=== PATIENT | male | born 1960 | race Caucasian/White ===

== ENCOUNTER 2020-08-20 10:41 | Inpatient (IN) | payer OTHER ==
[~2020-08-20 10:41] MED LIST: Albuterol Sulfate HFA (OR ONLY) ONE; Succinylcholine Chloride 20 MG/ML 10 ml SYRINGE FS ONE; Vecuronium 10 MG VIAL ONE
[2020-08-20 11:21] LABS: INR-International Normal Ratio 2.8; PTT 48.3 sec (22.9-36.1); Prothrombin Time 29.9 sec (12.0-14.7)
[2020-08-20 11:38] LABS: #Eosinphils 0.1 thou/uL (0.0-0.7); #Lymphocytes 2.2 thou/uL (1.20-3.40); #Monocytes 1.8 thou/uL (0.11-0.59); #Neutrophils 14.8 thou/uL (1.40-6.50); %Basophils 0.1 % (0.0-1.0); %Eosinophils 0.5 % (0.0-10.0); %Lymphocytes 11.7 % (21.0-51.0); %Monocytes 9.3 % (0.0-10.0); %Neutrophils 78.3 % (42.0-75.0); Crenated RBC MODERATE= 6-15 cells (100X) (None Seen); Hemoglobin 8.5 g/dL (14.0-18.0); MDiff Complete? YES; Macrocytosis SLIGHT = 6-15 cells (100X) (0-5/hpf); Mean Corpuscular HGB CONC 32.7 g/dL (32.0-36.0); Mean Corpuscular Hemoglobin 35.1 pg (27.0-31.0); Mean Platelet Volume 9.1 fL (7.4-10.4); Platelet Count 70 thou/uL (130-400); Platelet Morphology Comment Appears Decreased; RBC Distribution Width 16.2 % (11.5-14.5); Red Blood Cell (RBC) Count 2.43 mill/uL (4.70-6.10); White Blood Cell (WBC) Count 18.9 thou/uL (4.8-10.8)
[2020-08-20 11:42] LABS: ALT (SGPT) 19 U/L (8-55); AST (SGOT) 30 U/L (5-34); Albumin 1.9 g/dL (3.5-5.0); Alkaline Phosphatase 93 U/L (40-110); Anion Gap 26 mmol/L (10-20); Bilirubin, Total 13.1 mg/dL (0.2-1.2); Calc. Creatinine Clearance 0 mL/min (70-130); Calcium 7.6 mg/dL (7.8-10.44); Carbon Dioxide 15 mmol/L (22-29); Chloride 95 mmol/L (98-107); Estimated GFR-MDRD 6; Globulin 2.2 g/dL (2.4-3.5); Glucose 133 mg/dL (70-105); Potassium 5.5 mmol/L (3.5-5.1); Protein, Total 4.1 g/dL (6.0-8.3); Sodium 130 mmol/L (136-145)
[2020-08-20] MEDS ORDERED: Octreotide Acetate 50 MCG/ML AMP ONE (11:44)
[2020-08-20] MEDS ORDERED: Pantoprazole 40 MG VIAL ONE (11:44)
[2020-08-20] MEDS ORDERED: Octreotide Acetate 1,250 MCG in Sodium Chloride 0.9% 250 ML 250 ML IVPB SCH (11:45)
[2020-08-20] MEDS ORDERED: Pantoprazole 80 MG, Admixture Fee 1 EACH in Sodium Chloride 0.9% 100 ML IVPB SCH (11:45)
[2020-08-20 12:04] LABS: BUN (Urea Nitrogen) 164 mg/dL (8.4-25.7)
[2020-08-20] MEDS ORDERED: EPINEPHrine 1 MG/10 ML Abboject SYRINGE ONE (12:27)
[2020-08-20] MEDS ORDERED: Ondansetron PF 4 MG/2 ML Vial IVP PRN (12:41)
[2020-08-20] MEDS ORDERED: Ondansetron ODT 4 MG TAB PO PRN (12:41)
[2020-08-20] MEDS ORDERED: Lactated Ringer's 1,000 ML IV SCH (12:45)
--- NOTE | 2020-08-20 12:47 | PDOC.FPRHP ---
- History of Present Illness Chief Complaint: rectal bleed History of Present Illness: Mr. Paredes is a 60 year old gentleman with a history of COPD and alcoholic cirrhosis who presented via EMS following a large rectal bleed of bright red blood. Patient explains he has seen drops of bright red blood from his rectum for the past 3-4 days. Today he recalls being at home and feeling unwell, explaining he was having trouble breathing. He called his sister who then called EMS. EMS gave him albuterol in route to the hospital. He also reports diarrhea of one month duration. Patient denies fever, CP, nausea, vomiting, or coughing up blood. He was diagnosed with alcoholic cirrhosis approximately 1 year ago and was last hospitalized for ascites in April of this year in [place]. He has never seen GI outpatient. He moved here to [place] in May. Patient reports no alcoholic intake for 1 year but says he drank "a lot" before. Mr. Paredes reports he is supposed to be on inhalers for his COPD but he does not take them. ED Course: Hypotension, hypothermic, and tachycardic upon arrival. L humeral I/O placed and fluids initiated. Right femoral central line placed. Octreotide and Protonix drip. 4u pRBC, 1u plasma. 2L NS. - Allergies/Adverse Reactions Allergies Allergy/AdvReac Type Severity Reaction Status Date / Time No Known Allergies Allergy Unverified 08/20/20 11:44 - History PMHx: COPD, alcoholic cirrhosis PSHx: unspecified lung surgery FHx: Non-contributory Social: 1/2 PPD since teenager, previous heavy drinker - sober for 1 year, no marijuana or drug use. IV drug use when 21. Recently moved to [facility] from [place]. His sister lives here. - Review of Systems General: denies: fever/chills Eyes: denies: vision changes ENT: denies: nasal congestion Respiratory: reports: cough. denies: shortness of breath Cardiovascular: denies: chest pain, edema Gastrointestinal: reports: diarrhea, GI bleeding. denies: nausea, vomiting, abdominal pain Skin: reports: jaundice Musculoskeletal: denies: arthritis/arthralgias Neurological: reports: weakness - Vital signs BP: 88/52, MAP: 64 HR: 100 RR: 21 Tmax: 94.9 Pox: 100% on 2L Wt: 57kg - Physical Exam Constitutional: NAD, awake, alert and oriented -Constitutional: cachetic HEENT: normocephalic and atraumatic, grossly normal vision, grossly normal hearing -HEENT: scleral icteric Chest: no lesions Heart: pulses present -Heart: difficult to assess due to lung sounds -Lungs: diffuse wheezing and coarse breath sounds Abdomen: soft, non-tender -Abdomen: distended, +fluid wave, hepatomegaly Musculoskeletal: ROM grossly normal Neurological: no focal deficit, CN II-XII intact -Skin: jaundice Psychiatric: normal mood and affect, good judgment and insight, intact recent and remote memory FMR H&P: Results - Labs Result Diagrams: 08/20/20 11:03 08/20/20 11:03 Lab results: WBC 18.9 thou/uL (4.8-10.8) H 08/20/20 11:03 Hgb 8.5 g/dL (14.0-18.0) L 08/20/20 11:03 Hct 26.1 % (42.0-52.0) L 08/20/20 11:03 MCV 107.0 fL (78.0-98.0) H 08/20/20 11:03 Plt Count 70 thou/uL (130-400) L 08/20/20 11:03 Neutrophils % 78.3 % (42.0-75.0) H 08/20/20 11:03 Sodium 130 mmol/L (136-145) L 08/20/20 11:03 Potassium 5.5 mmol/L (3.5-5.1) H 08/20/20 11:03 Chloride 95 mmol/L (98-107) L 08/20/20 11:03 Carbon Dioxide 15 mmol/L (22-29) L 08/20/20 11:03 BUN 164 mg/dL (8.4-25.7) H 08/20/20 11:03 Creatinine 8.79 mg/dL (0.7-1.3) H 08/20/20 11:03 Glucose 133 mg/dL (70-105) H 08/20/20 11:03 Calcium 7.6 mg/dL (7.8-10.44) L 08/20/20 11:03 Total Bilirubin 13.1 mg/dL (0.2-1.2) H 08/20/20 11:03 AST 30 U/L (5-34) 08/20/20 11:03 ALT 19 U/L (8-55) 08/20/20 11:03 Alkaline Phosphatase 93 U/L (40-110) 08/20/20 11:03 Serum Total Protein 4.1 g/dL (6.0-8.3) L 08/20/20 11:03 Albumin 1.9 g/dL (3.5-5.0) L 08/20/20 11:03 - EKG Interpretation EKnd degree AVB FMR H&P: A/P - Problem List (1) Hemorrhagic shock Current Visit: Yes Status: Acute Code(s): R57.8 - OTHER SHOCK (2) Acute renal failure Current Visit: Yes Status: Acute (3) Alcoholic cirrhosis Current Visit: Yes Status: Acute Code(s): K70.30 - ALCOHOLIC CIRRHOSIS OF LIVER WITHOUT ASCITES (4) COPD (chronic obstructive pulmonary disease) Current Visit: Yes Status: Acute (5) GI bleed Current Visit: Yes Status: Acute Code(s): K92.2 - GASTROINTESTINAL HEMORRHAGE, UNSPECIFIED (6) Hyperkalemia Current Visit: Yes Status: Acute Code(s): E87.5 - HYPERKALEMIA (7) Hyponatremia Current Visit: Yes Status: Acute Code(s): E87.1 - HYPO-OSMOLALITY AND HYPONATREMIA - Plan 60 yo M with a history of COPD and alcoholic cirrhosis presenting in hemorrhagic shock following rectal bleed Hemorrhagic Shock Hypotensive, hypothermic, and tachycardic following large rectal bleed. Received 2L NS, 4u pRBC, 1u plasma in ED. -Admit to ICU -150mL/hr LR -Hgb 8.5 on admission -MAP 65, no pressors at this time -repeat CBC, BMP pending -ABG pending Acute Renal Failure No history of kidney disease -Cr 8.79, K 5.5 -rolle in place -Consult: Nephro Bhaskar) Alcoholic Cirrhosis Diagnosed 1 year ago. Last hospitalized for ascites in April. Has never seen GI doctor. Heavy drinker prior to quitting 1 year ago. -jaundice, icteric sclera, ascites, hepatomegaly on exam -takes spironolactone and furosemide -AFP pending -MELD score: 40, 71% 3 mo mortality -Child-Javed score: 13, 1-3 year mortality -AST 30, ALT 19, albumin 1.9, Bili 13.1 -Consult: GI (Amanda) GI bleed History of bright red rectal bleeding of 3 days. EMS found patient in large pool of bright red blood and clots. -Consult: GI (Amanda) -protonix and octreatide drip -NPO in preparation for a possible scope -rocephin for SBP PPx COPD -Diffuse wheezing and coarse breath sounds -100% on 2L -duonebs Hyperkalemia -K 5.5 -repeat pending Hyponatremia -Na 130 -likely due to hepatorenal syndrome Tobacco use -1/2 PPD since teenager -Nicotine patch -Cessation education DVT: SCDs Diet: NPO PCP: None IVF: 150mL/hr LR Dispo: admit to ICU. eLOS >48 hours. FMR H&P: Upper Level - Pertinent history Pt is a 60 yo M with pmh of COPD and Cirrhosis. He started having diarrhea one week ago and then developed bright red bleeding per rectum 3-4 days ago. Started feeling bad today and felt like he couldnt breathe. Sister called EMS. EMS found him in a pool of blood. He received albuterol on the way to the hospital. He was hypotensive, hypothermic, and tachycardia. He states his last appointment with a doctor was last April. He recently moved here from [place]. He states he was hospitalized in April for ascites due to his cirrhosis. He has been taking medications from that hospital stay. - Pertinent findings Vitals: T: 94.2, HR: 100, RR: 21, O2: 100 on 2L, BP: 88/52 Physical Exam: General: Alert and oriented HEENT: Sclera Icteric Cardiac: Exam limited due to respiratory compromise Respiratory: Diffuse, coarse continuous wheezing Abdominal: Soft, Non-tender, Distended abdomen, unable to hear bowel sounds Neuro: A&Ox3, CN II-XII grossly intact, no focal deficits Extremities: Trace edema present, pulses 2+ throughout 1. Hemorrhagic Shock 2/2 Rectal Bleeding -1 week of bleeding -In ED: Protonix gtt, Octreotide gtt, 2L of Fluid, and Right femoral central line -Getting ABG, Staring Fluids 150 LR -Ordered: 4 U packed RBCs, 1 U of plasma -Consulted GI (08/18), Dr. Patel, Appreciate recs 2. Alcoholic Cirrhosis -Home Meds: Spironolactone, Furosemide -Last hospitalized in April for Ascites -AST: 30, ALT: 19 on admission -He has not seen a GI doctor -MELD: 40, Morality 70% in 3 months -Jacinto-Javed: 13, Class C, life expectancy 1-3 years 3. COPD -Has inhaler at home, but does not use them -Starting duonebs 4. ARF on CKD -Cre: 8.79 -Consulted Nephrology -Rolle placed -Will monitor I&Os Code Status: Full PCP: None Lines: R Femoral, IO in L Humerus Fluids: LR @ 150 Diet: NPO GI PPx: Famotidine gtt DVT PPx: SCDs Dispo: Admit to ICU, GI consulted, NPO for scope. - Plan Date/Time: 08/20/20 4027 I, [], have evaluated this patient and agree with findings/plan as outlined by undergraduate intern resident. Pertinent changes/additions are listed here. Addendum - Attending - Attending Attestation Date/Time: 08/20/20 0842 I personally evaluated the patient and discussed the management with Dr. Bliss/Payam Jauregui. I agree with the History, Examination, Assessment and Plan documented above with any addition or exceptions noted below. Patient here with 3-4 days of hematochezia and BRBPR in the setting of cirrhosis history. Patient apparently found down earlier today and sent to ED. He reports to me that he has been feeling increasingly weak and fatigued for about 1 week. Reports otherwise feeling in baseline health status during this period. He does indicate on questioning that he has been urinating less over the last few days. Upon arrival to ED, he was apparently hypotensive, hypothermic, and altered. He received serial transfusion and bare hugger therapy. His H/H was 8.5/26. Exam shows vital signs currently of HR100 BP80s/60s. Sat 100%. He is AXO, answers questions appropriately. Scleral icterus and jaundice diffusely. Distended abdomen. Minimal peripheral edema. Labs show anemia, leukocytosis, thrombocytopenia, coagulopathy, uremia, and ARF with metabolic acidosis. He has minimal UOP in the urine bag. Patient will be admitted for the following: suspected Class 4 hemorrhagic shock in setting of suspected lower GI bleed in setting of cirrhosis. Suspect decompensated cirrhosis. Acute renal failure, likely 2/2 shock above but also could have component of hepatorenal syndrome. Possible Hepatic and Uremic encephalopathy. Cirrhotic coagulopathy. He has been fluid resuscitated, vitals currently more stable. Trend H/H, transfuse PRBC and plasma as needed. Monitor close UOP. Nephro and GI consults. Patient will be admitted to CCU for close monitoring. Continue Protonix and Octreotide for now as cannot completely exclude brisk UGIB at this time though less likely. Rocephin for SBP ppx due to hypotension in setting of cirrhosis with ascites. Blood cultures. Further mgmt pending clinical course.
[2020-08-20] MEDS ORDERED: Norepinephrine 8 MG/0.9% NS 250 ML ONE (13:14)
[2020-08-20] MEDS ORDERED: Electrolyte Replacement Protoc 1 EACH EACH IVPB ONE (13:58)
[2020-08-20] MEDS ORDERED: Dextrose 50% Abboject 50 ML SYRINGE IVP PRN (14:15)
[2020-08-20] MEDS ORDERED: Dextrose 5% in Water 1,000 ML IV PRN (14:15)
[2020-08-20] MEDS ORDERED: Midazolam HCl 2 mg/2 ml Vial ONE (14:26)
[2020-08-20] MEDS ORDERED: Ketamine 50 MG/ML (10ML VIAL) ONE (14:26)
[2020-08-20] MEDS ORDERED: Albuterol Sulfate HFA (OR ONLY) ONE (14:43)
[2020-08-20 14:44] LABS: ALT (SGPT) 17 U/L (8-55); AST (SGOT) 29 U/L (5-34); Albumin 1.7 g/dL (3.5-5.0); Alkaline Phosphatase 82 U/L (40-110); Anion Gap 20 mmol/L (10-20); Bilirubin, Total 11.1 mg/dL (0.2-1.2); Calc. Creatinine Clearance 0 mL/min (70-130); Calcium 6.5 mg/dL (7.8-10.44); Carbon Dioxide 15 mmol/L (22-29); Chloride 102 mmol/L (98-107); Estimated GFR-MDRD 7; Glucose 111 mg/dL (70-105); Potassium 5.4 mmol/L (3.5-5.1); Protein, Total 3.7 g/dL (6.0-8.3); Sodium 132 mmol/L (136-145)
[2020-08-20 14:57] LABS: HBSAg Index 0.21 S/CO (0-0.99); Hep B Surf Ag Non-Reactive S/CO (NonReactive)
[2020-08-20 14:57] LABS: BUN (Urea Nitrogen) 148 mg/dL (8.4-25.7)
[2020-08-20 14:58] LABS: Hep A IgM AB Non-Reactive (NonReactive); Hep A IgM S/CO 0.33 S/CO (0-0.79)
[2020-08-20 15:00] LABS: HBCM Index 0.07 S/CO (0-0.79); Hep C IgG Ab Reflex HepC Qnt (NonReactive); Hep C Index 13.26 S/CO (0-0.79); Hepatitis B Core IgM Abs Non-Reactive (NonReactive)
[2020-08-20] MEDS ORDERED: cefTRIAXone\\ROCEPHIN 1 GM in Sodium Chloride 0.9% 100 ML IVPB SCH (15:00)
[2020-08-20 16:14] LABS: Actual Bicarbonate (HCO3a) 13.7 mEq/L (22-28); Base Excess (BEa) -12.6 mEq/L (-2.0 to +3.0); CO2 Tension 32.7 mmHg (35.0-45.0); Calcium, Ionized (arterial) 0.98 mmol/L (1.12-1.30); Carboxyhemoglobin (COHb) 0.9 gm% (0.0-3.0); Hemoglobin (Hb) 12.3 g/dL (14.0-18.0); O2 Tension (PaO2), arterial 137.8 mmHg (80.0-100.0); Potassium - ABG Lab 5.17 mmol/L (3.70-5.30)
[2020-08-20 16:17] LABS: Puncture Site L.R.; pH, Arterial 7.24 (7.35-7.45)
[2020-08-20 16:18] LABS: ALV-art Gradient 106.525 mmHg (0-20)
[2020-08-20 16:23] LABS: #Eosinphils 0.1 thou/uL (0.0-0.7); #Lymphocytes 2.1 thou/uL (1.20-3.40); #Monocytes 1.7 thou/uL (0.11-0.59); #Neutrophils 15.4 thou/uL (1.40-6.50); %Basophils 0.1 % (0.0-1.0); %Eosinophils 0.4 % (0.0-10.0); %Lymphocytes 10.8 % (21.0-51.0); %Monocytes 8.7 % (0.0-10.0); %Neutrophils 79.9 % (42.0-75.0); Mean Corpuscular HGB CONC 33.9 g/dL (32.0-36.0); Mean Corpuscular Hemoglobin 34.7 pg (27.0-31.0); Mean Platelet Volume 9.1 fL (7.4-10.4); Platelet Count 59 thou/uL (130-400); RBC Distribution Width 15.3 % (11.5-14.5); Red Blood Cell (RBC) Count 3.45 mill/uL (4.70-6.10); White Blood Cell (WBC) Count 19.2 thou/uL (4.8-10.8)
[2020-08-20] MEDS ORDERED: Phytonadione 10 MG in Sodium Chloride 0.9% 50 ML IVPB SCH (16:30)
--- NOTE | 2020-08-20 16:48 | RAD ---
PORTABLE SUPINE CHEST: Date: 08/20/2020 INDICATION: Post intubation. FINDINGS/IMPRESSION: ET tube has been placed and tip is above adria. Lungs appear aerated and clear. There are numerous l eft-sided rib fractures, age indeterminate. No pneumothorax identified. POS: AGW
[2020-08-20] MEDS ORDERED: Lorazepam 2 MG/ML VIAL SLOW IVP PRN (17:30)
[2020-08-20] MEDS ORDERED: Propofol BOLUS 1,000 MG/100 ML VIAL IV PRN (17:30)
[2020-08-20] MEDS ORDERED: fentaNYL Citrate/PF 2,000 MCG in Sodium Chloride 0.9% 60 ML IV SCH (17:30)
[2020-08-20] MEDS ORDERED: Propofol 1,000 MG/100 ML VIAL IV PRN (17:30)
[2020-08-20] MEDS ORDERED: Fentanyl BOLUS 250 ML IVPB PRN (17:30)
[2020-08-20] MEDS ORDERED: Morphine 2 MG/ML VIAL SLOW IVP PRN (17:30)
[2020-08-20] MEDS ORDERED: DISCONTINUE PREVIOUS NARCOTIC PAIN MEDICATIONS AND BENZODIAZEPINES FS SCH (17:30)
[2020-08-20] MEDS: cefTRIAXone\\ROCEPHIN 2 GM in Sodium Chloride 0.9% 100 ML IVPB SCH (17:32)
[2020-08-20] MEDS: Sodium Bicarbonate 140 MEQ in Dextrose 5% in Water 1,000 ML IV SCH (17:32)
--- NOTE | 2020-08-20 17:32 | CON ---
DATE OF CONSULTATION: 08/20/2020 REASON FOR CONSULTATION: Hematochezia, cirrhosis. CONSULTING PROVIDER: Santino Meyer MD HISTORY OF PRESENT ILLNESS: The patient is a 60-year-old male with past medical history of COPD and cirrhosis complicated by lower extremity edema and ascites, presenting with complaints of hematochezia. He states that he was in his usual state of health until approximately 1 week ago when he began having acute onset of hematochezia characterized as bright red blood per rectum to the point where the patient was having approximately 5 to 7 bloody bowel movements per day. During the same time, he also endorsed the appearance of dark black colored liquid stools also occurring at the same time of his hematochezia. With the onset of this hematochezia, he had associated increased shortness of breath in addition to increased wheezing, but otherwise denied any nausea, vomiting, fevers, chills, abdominal pain, dysphagia, odynophagia, worsening abdominal distention, lower extremity edema, or constipation. However, with his worsening shortness of breath and with the failure to stop having these bloody bowel movements, it prompted him to seek healthcare assistance at the [facility]. With the increased bloody bowel movements, ultimately, EMS was called to his home and had found the patient lying down in a "large pool of blood" at which point, the patient was immediately transported to [facility] for further evaluation. While in the ER, he was noted to have continued hematochezia in addition to tachycardia and hypotension with blood pressures in the range of 80 systolic. Subsequently, the patient was resuscitated with 2 units of normal saline in addition to 2 units of PRBCs (second one still processing at this time) in addition to placing the patient on pantoprazole and octreotide drip. At the time of this interview, the patient was still having difficulty maintaining adequate blood pressure/perfusion and was subsequently being placed on Levophed pressor support. At the current time, the patient states that he is just feeling ill, but otherwise is doing okay. REVIEW OF SYSTEMS: A 10-category review of systems was obtained with all responses negative except for the pertinent positives as listed in HPI. PAST MEDICAL HISTORY: As per HPI. PAST SURGICAL HISTORY: The patient had a lung surgery approximately 1 to 2 years ago with a "scrape to my lungs." No other surgical procedures. FAMILY HISTORY: Denies any GI malignancies. SOCIAL HISTORY: The patient continues to smoke tobacco, but denies recent alcohol use (last use of alcohol was approximately 1 year ago). Denies any illicit drug use. OUTPATIENT MEDICATIONS: 1. Furosemide. 2. Spironolactone. ALLERGIES: NO KNOWN DRUG ALLERGIES. PHYSICAL EXAMINATION: VITAL SIGNS: Temperature not recorded in the chart just yet, pulse 104, blood pressure 64/42, respiratory rate 22, saturating 93% on 2 L nasal cannula. GENERAL: The patient was lying in bed, in no acute distress, alert and oriented x4, although elements of history taking were noted by some confusion. HEENT: Normocephalic, atraumatic. NECK: Supple. No JVD noted. Positive scleral icterus. CARDIOVASCULAR: Tachycardic rate but regular rhythm. No discernible murmurs, gallops, or rubs. RESPIRATORY: Clear to auscultation bilaterally with no discernible wheezes or rales. ABDOMEN: Hypoactive bowel sounds. Soft, nontender to palpation, however, moderate abdominal distention that was not tense to palpation with an umbilical hernia present. EXTREMITIES: No cyanosis, clubbing, or edema. LABORATORY DATA: CBC with a white blood cell count of 18.9, hemoglobin 8.5, hematocrit 26.1, platelets 70. INR 2.8. Chemistry with a sodium of 130, potassium 5.5, chloride 95, CO2 of 15, BUN 164, creatinine 8.79, glucose 133, AST 30, ALT 19, alkaline phosphatase 93, total bilirubin 13.1, calculated MELD-Na score of 41. IMAGING DATA: No current GI imaging is available for review. ASSESSMENT AND PLAN: The patient is a 60-year-old male with past medical history of chronic obstructive pulmonary disease and cirrhosis, complicated by lower extremity edema and ascites, presenting with anemia secondary to hemorrhage and hematochezia. Anemia/hematochezia. The patient is presenting with the acute onset of hematochezia characterized as bright red blood per rectum in addition to melenic type stools, having approximately 5 to 7 of these bloody bowel movements every day for the last week. On admission, the patient was noted to be tachycardic and hypotensive with derangements in his renal function concerning for hemorrhagic shock. At the current time, based on his history of cirrhosis, the differential could include peptic ulcer disease, esophageal varix bleeding, arteriovenous malformation, Dieulafoy lesion, hemosuccus pancreaticus and/or gastrointestinal neoplasm. With the denominational of hypotension, tachycardia, and history of cirrhosis, this could represent a brisk upper gastrointestinal bleed resulting in gross blood/hematochezia, so an EGD is warranted at this time. However, if the patient does not have any findings on the EGD, would then consider rapid prep for colonoscopy for further evaluation. RECOMMENDATIONS: 1. Would continue to trend his H and H and transfuse as necessary to maintain an H and H of 06/02. 2. Continue to monitor clinically for signs of active GI bleeding. 3. Agree with placing the patient on pressor support at this time given his significant hypotension. Would continue further resuscitative efforts including blood product and IV fluids. 4. Agree with administering FFP in an attempt to correct the patient's coagulopathy. 5. Agree with placing the patient on octreotide and pantoprazole drip. 6. We will continue n.p.o. status for now in anticipation of upper endoscopy later today. 7. We would plan for upper endoscopy evaluation of the upper GI tract and possible bleeding source. If the upper endoscopy is negative for overt signs of bleeding, would then have the patient admitted to the ICU with rapid prep sequence for colonoscopy later today given his significant bleeding. We will continue to follow. Please call with any questions. Job ID: [id number]
[2020-08-20 17:34] LABS: SARS-CoV-2 MS2 Positive; SARS-CoV-2 N Gene Negative; SARS-CoV-2 S Gene Negative; SARS-CoV-2 by NAA Not Detected (NotDetected); SARS-CoV-2 orf1ab Negative
--- NOTE | 2020-08-20 17:54 | CON ---
DATE OF CONSULTATION: REASON FOR CONSULTATION: Hyperkalemia and metabolic acidosis. HISTORY OF PRESENT ILLNESS: This is a 60-year-old gentleman who presented to the hospital and has been intubated with hematochezia and cirrhosis. The patient's creatinine was 8.7 on admission. No prior baseline is available. The patient can give no further history as he is intubated. REVIEW OF SYSTEMS: Unobtainable. PAST MEDICAL HISTORY: Only available for lung surgery, cirrhosis, and major alcohol use. SOCIAL HISTORY: tobacco and alcohol. OUTPATIENT MEDICATIONS: Reviewed. ALLERGIES: REVIEWED. FAMILY HISTORY: Negative for end-stage renal disease. PHYSICAL EXAMINATION: GENERAL: The patient is resting, intubated. VITAL SIGNS: Afebrile, pulse 91, breathing at 16, blood pressure was 90/58. HEENT: Head normocephalic and atraumatic. Eyes intact, no ulcers. Nose intact, no ulcers. Ears intact, no ulcers. NECK: Supple. No JVD. CHEST: Symmetrical and clear. CARDIOVASCULAR: Shows S1 and S2, no rub, no murmur. GASTROINTESTINAL: Abdomen is distended. EXTREMITIES: Show no edema or ulcers. SKIN: Shows no rash or petechiae. MUSCULOSKELETAL: Shows no joint swelling or stiffness. GENITOURINARY: Shows no Hare or CVA tenderness. NEUROLOGIC: The patient is resting. LABORATORY DATA: Shows potassium 5.4, creatinine 8.7, BUN 164. ASSESSMENT AND PLAN: Acute kidney injury with chronic kidney disease due to decreased effective arterial blood volume with hyperkalemia and metabolic acidosis. The patient is not a candidate for dialysis as his blood pressure is significantly low. I would recommend getting continuous veno-venous hemodialysis as the patient needs to be transferred to an outside facility. Overall prognosis is poor that is imminent. The patient more than likely is too unstable for transfer. No family member is available. Job ID: [id number]
[2020-08-20 20:04] LABS: Anion Gap 24 mmol/L (10-20); Calc. Creatinine Clearance 8 mL/min (70-130); Calcium 7.1 mg/dL (7.8-10.44); Carbon Dioxide 12 mmol/L (22-29); Chloride 103 mmol/L (98-107); Estimated GFR-MDRD 7; Glucose 110 mg/dL (70-105); Potassium 5.9 mmol/L (3.5-5.1); Sodium 133 mmol/L (136-145)
[2020-08-20 20:14] LABS: BUN (Urea Nitrogen) 152 mg/dL (8.4-25.7)
--- NOTE | 2020-08-20 20:18 | OP ---
DATE OF PROCEDURE: 08/20/2020 INDICATIONS FOR PROCEDURE: Hematochezia, history of cirrhosis. PROCEDURES PERFORMED: Esophagogastroduodenoscopy with control of hemorrhage. DESCRIPTION OF PROCEDURE: After the risks and benefits of the procedure were explained to the patient including risks of bleeding, infection, perforation, reactions to anesthesia, aspiration, and/or pain, informed consent was obtained. The patient was then taken to the endoscopy suite, where general anesthesia was administered followed by endotracheal tube intubation. Once the patient was adequately sedated and intubated, he was maneuvered into the left lateral decubitus position, followed by introduction of the standard gastroscope with intubation of the esophagus, stomach, and proximal small intestines with the findings listed below. The patient tolerated the procedure well with no immediate perioperative complications. Upon conclusion of the procedure, all equipment was removed from the patient and he was transferred to the ICU in satisfactory condition. FINDINGS: Esophagus: Normal-appearing mucosa was seen in the proximal, mid, and distal esophagus. There was no evidence of erosions, ulcerations, mass lesions, esophageal varices, or active/recent bleeding. Stomach: Upon entry into the stomach, a [id number] amount of retained dark black blood was seen throughout the entire stomach limiting the visualization of the gastric mucosa somewhat; however, with aggressive irrigation and suctioning, adequate visualization was achieved. Upon examination of the gastric mucosa, diffuse mucosal erythema was seen throughout the entire stomach in a mosaic-type pattern that exhibited increased friability and mild oozing of blood with the passage of the gastroscope itself. Along the greater curvature, where the body and the antral junction existed, a small adherent clot measuring 2 to 3 mm was seen with a possible underlying ulceration, given that this is a high-risk stigmata for recent bleeding. This was intervened upon with bipolar cauterization with good hemostasis achieved. Otherwise, there were no other areas of active or recent bleeding. There was no evidence of erosions or mass lesions. No gastric varices were seen on gastric retroflexion. Duodenum: Increased mucosal erythema was seen in the duodenal bulb as well as increased edema extending into the duodenal sweep. There were approximately 3 ulcerations measuring 2 to 5 mm in size. They were shallow and clean based without any high-risk stigmata of active or recent bleeding. These were not intervened upon, given their characteristics on endoscopy. Again, darker colored blood was seen extending through the duodenal sweep and into the second, third, and fourth portions of the duodenum. Upon withdrawal of the scope, multiple areas of mild oozing of blood indicative of friability of the mucosa were seen with one area in particular that did not stop with active visualization. This area was then subsequently intervened upon with bipolar cauterization with good hemostasis achieved. IMPRESSION: 1. [id number] portal hypertensive gastropathy with increased friability and oozing of blood, but no evidence of active bleeding. 2. A 2 to 3 mm ulcer seen along the greater curvature with adherent clot concerning for recent GI bleeding, now status post bipolar cauterization with good hemostasis achieved. 3. No evidence of esophageal or gastric varices. 4. Increased mucosal erythema and edema seen in the duodenal sweep and bulb along with 3 clean based ulcerations measuring 2 to 5 mm in size consistent with peptic ulcer disease. RECOMMENDATIONS: 1. Would continue to trend his H and H and transfuse as necessary to maintain an H and H of 7/21. 2. Continue to monitor clinically for signs of active GI bleeding. 3. Would attempt to reverse the patient's coagulopathy with blood product and/or vitamin K, given the increased friability seen in the upper GI tract. 4. Given the increased probability of an upper GI bleed, colonoscopy is not indicated at this time unless the patient continues to drop his H and H or continues to have significant bloody bowel movements. 5. Would continue the patient on a PPI drip in addition to ceftriaxone as part of treatment of the portal hypertensive gastropathy/peptic ulcer disease and infection prophylaxis respectively. 6. Given the lack of evidence of esophageal or gastric varices, the octreotide drip can be discontinued. 7. Would continue the patient on n.p.o. status and intubated until tomorrow in case further drop or hypotensive episodes are noted. We will continue to follow. Please call with any questions. Job ID: [id number]
--- NOTE | 2020-08-20 21:12 | CON ---
DATE OF CONSULTATION: 08/20/2020 35 minutes of critical care time. REASON FOR CONSULTATION: Ventilator management. HISTORY OF PRESENT ILLNESS: A 60-year-old with COPD and alcoholic varices who presented with bright red blood per rectum. He was taken to endoscopy by Dr. Patel, found to have portal gastropathy, but no visible bleeding. I am not sure whether or not, the patient had colonic visualization. The patient was left intubated after the procedure for the purpose of possible taking back tomorrow for second look if he has more bleeding tonight. Because he was intubated, I did not get to talk to the patient ahead at a time. Per the history and physical on the chart, he has had bleeding for 3 to 4 days. He has had diarrhea for about a month. He has not had any alcohol intake in the last year. PAST MEDICAL HISTORY: 1. COPD. 2. Cirrhosis. PAST SURGICAL HISTORY: Some type of lung surgery in the past, looks like he has also had some type of lower abdominal surgery. SOCIAL HISTORY: Half pack per day tobacco consumption or illicit drug use. Previously heavy drinker. Just moved to this area from [place]. ALLERGIES: NONE. MEDICATIONS: Prior to admission, not known. REVIEW OF SYSTEMS: Cannot be obtained as he is on mechanical ventilation. PHYSICAL EXAMINATION: VITAL SIGNS: Heart rate 90; O2 saturation 100%; respiratory rate 22; blood pressure 112/63, on Levophed. HEENT: Unremarkable. NECK: No JVD. LUNGS: Diminished breath sounds in the bases. CARDIOVASCULAR: S1 and S2. Regular. ABDOMEN: Protuberant with ascites. EXTREMITIES: Severe muscle wasting. LABORATORY DATA: White blood cell count 18.9, hematocrit 26.1, and platelet count 70. INR 2.8. Sodium 132, potassium 5.4, chloride 102, CO2 of 15, BUN 148, creatinine 7.8, glucose 111. Hepatitis serology showed positive hepatitis C antibody. A COVID test is pending. I do not see that a chest x-ray was done. ASSESSMENT: 1. Decompensated cirrhosis with ascites and gastrointestinal bleeding. 2. Coagulopathy secondary to cirrhosis. 3. Severe metabolic acidosis. 4. Acute renal failure. 5. Possible hepatorenal syndrome. PLAN: 1. Leave intubated overnight. 2. Adjust ventilator for degree of metabolic acidosis. Start bicarbonate drip. Stop lactated Ringer. 3. Give vitamin K. 4. May need more FFP in the morning. 5. We would consider large volume paracentesis as soon as practical. 6. Nephrology and GI consultation. Job ID: [id number]
[2020-08-20] MEDS: Albumin 25% 25 GM/100 ML BOT IVPB SCH (21:48)
[2020-08-20] MEDS: Nicotine 14 MG PATCH TD SCH (21:48)
[2020-08-21] MEDS: Albumin 25% 25 GM/100 ML BOT IVPB SCH ×4 (00:38→17:51)
[2020-08-21] MEDS: Norepinephrine 8 MG/0.9% NS 250 ML IVPB SCH ×3 (00:38→22:12)
[2020-08-21] MEDS: HumaLOG 300 UNITS/3 ML VIAL SC PRN ×2 (00:48→11:46)
[2020-08-21 04:41] LABS: INR-International Normal Ratio 2.4; Prothrombin Time 26.6 sec (12.0-14.7)
[2020-08-21 05:04] LABS: ALT (SGPT) 16 U/L (8-55); AST (SGOT) 22 U/L (5-34); Albumin 2.9 g/dL (3.5-5.0); Alkaline Phosphatase 74 U/L (40-110); Anion Gap 21 mmol/L (10-20); Calc. Creatinine Clearance 8 mL/min (70-130); Calcium 7.2 mg/dL (7.8-10.44); Carbon Dioxide 16 mmol/L (22-29); Chloride 100 mmol/L (98-107); Estimated GFR-MDRD 7; Globulin 1.7 g/dL (2.4-3.5); Glucose 177 mg/dL (70-105); Potassium 4.7 mmol/L (3.5-5.1); Protein, Total 4.6 g/dL (6.0-8.3); Sodium 132 mmol/L (136-145)
[2020-08-21 05:15] LABS: BUN (Urea Nitrogen) 155 mg/dL (8.4-25.7)
[2020-08-21 05:24] LABS: Band 12 % (5-11); Burr Cells SLIGHT = 2-5 cells (100X) (0-1/hpf); Hemoglobin 10.6 g/dL (14.0-18.0); Lymphocytes 12 % (21-51); MDiff Complete? YES; Mean Corpuscular HGB CONC 34.9 g/dL (32.0-36.0); Mean Corpuscular Hemoglobin 35.3 pg (27.0-31.0); Mean Platelet Volume 6.9 fL (7.4-10.4); Monocytes 9 % (0-10); Myelocyte 1 % (0-0); Neutrophil 66 % (42-75); Platelet Count 48 thou/uL (130-400); Platelet Morphology Comment Appears Decreased; RBC Distribution Width 15.5 % (11.5-14.5); Red Blood Cell (RBC) Count 3.01 mill/uL (4.70-6.10); White Blood Cell (WBC) Count 14.5 thou/uL (4.8-10.8)
[2020-08-21] MEDS: Sodium Bicarbonate 140 MEQ in Dextrose 5% in Water 1,000 ML IV SCH ×3 (05:33→22:12)
--- NOTE | 2020-08-21 06:01 | PDOC.FM ---
- Subjective Subjective: Pt reports no pain this morning. He had one black bowel movement yesterday evening. - Objective MAR Reviewed: Yes Vital Signs & Weight: Vital Signs (12 hours) Temp Pulse Resp BP Pulse Ox 08/21/20 04:00 97.9 F 22 H 08/21/20 02:45 86 96/51 L 08/21/20 02:00 22 H 08/21/20 00:14 80 08/21/20 00:00 97.8 F 22 H 08/20/20 22:00 82 22 H 08/20/20 20:00 97.6 F 22 H 100 08/20/20 18:11 82 114/68 08/20/20 18:00 22 H Weight Weight 60.2 kg Most Recent Monitor Data Heart Rate from ECG 85 NIBP 95/51 NIBP BP-Mean 65 Respiration from ECG 22 SpO2 100 I&O: 08/19/20 08/20/20 08/21/20 06:59 06:59 06:59 Intake Total 335 Output Total 79 Balance 256 Result Diagrams: 08/21/20 04:10 08/21/20 04:10 Radiology Reviewed by me: Yes (Cardiac silhouette on right side. ET tube in place.) Phys Exam - Physical Examination Constitutional: NAD HEENT: moist MMs Sclera icteric Neck: supple Respiratory: wheezing present Diffuse wheezing present Cardiovascular: RRR, no significant murmur Distended, tympanic abdomen, no bowel sounds heard Musculoskeletal: no edema, pulses present Neurological: non-focal Lymphatic: no nodes Skin: no rash, normal turgor Dx/Plan (1) Hemorrhagic shock Code(s): R57.8 - OTHER SHOCK Status: Acute (2) GI bleed Code(s): K92.2 - GASTROINTESTINAL HEMORRHAGE, UNSPECIFIED Status: Acute (3) Thrombocytopenia Code(s): D69.6 - THROMBOCYTOPENIA, UNSPECIFIED Status: Acute (4) Acute renal failure Status: Acute (5) Alcoholic cirrhosis Code(s): K70.30 - ALCOHOLIC CIRRHOSIS OF LIVER WITHOUT ASCITES Status: Acute (6) COPD (chronic obstructive pulmonary disease) Status: Acute - Plan Plan: Pt is a 60 yo M with pmh of cirrhosis 2/2 alcohol use, COPD, and tobacco abuse who presented for hemorrhagic shock 2/2 GI bleed. 1. Hemorrhagic Shock 2/2 Rectal Bleeding -1 week of bleeding -In ED: Protonix gtt, Octreotide gtt, 2L of Fluid, and Right femoral central line -Getting ABG, Staring Fluids 150 LR -Given 3 U packed RBCs, Vit K -Octreotide stopped, Protonix continued -Ordered FFP -Consulted GI (08/18), Dr. Patel, Appreciate recs. * Found Portal gastropathy and ulcers, which was cauterized 2. Alcoholic Cirrhosis -Home Meds: Spironolactone, Furosemide -Last hospitalized in April for Ascites -AST: 30, ALT: 19 on admission -He has not seen a GI doctor -MELD: 40, Morality 70% in 3 months -Jacinto-Javed: 13, Class C, life expectancy 1-3 years 3. COPD -Has inhaler at home, but does not use them -Starting duonebs 4. ARF on CKD -Cre: 8.06 -Consulted Nephrology, appreciate recs. -Hare placed -Will monitor I&Os -On bicarb drip -Needs veno venous dialysis, but unstable for transfer. 5. Thrombocytopenia Plt: 48 - FFP ordered 6. Tobacco Abuse -Nicoderm patch given Code Status: Full PCP: None Lines: R Femoral, IO in L Humerus Fluids: Sodium Bicarb @ 100 Diet: NPO GI PPx: Famotidine 40 mg BID DVT PPx: SCDs Vent Settings: Dispo: Pt could use FFP today. Will continue protonix. Paracentesis if stable later today. Addendum - Attending - Attending Attestation Date/Time: 08/21/20 [id number] I personally evaluated the patient and discussed the management with Dr. Jauregui. I agree with the History, Examination, Assessment and Plan documented above with any addition or exceptions noted below.
[2020-08-21 06:53] LABS: Actual Bicarbonate (HCO3a) 15.9 mEq/L (22-28); Base Excess (BEa) -6.8 mEq/L (-2.0 to +3.0); Calcium, Ionized (arterial) 0.92 mmol/L (1.12-1.30); Carboxyhemoglobin (COHb) 0.3 gm% (0.0-3.0); Hemoglobin (Hb) 10.5 g/dL (14.0-18.0); O2 Tension (PaO2), arterial 72.2 mmHg (80.0-100.0); Potassium - ABG Lab 4.41 mmol/L (3.70-5.30); pH, Arterial 7.44 (7.35-7.45)
[2020-08-21 07:01] LABS: CO2 Tension 23.9 mmHg (35.0-45.0)
[2020-08-21 07:02] LABS: ALV-art Gradient 183.125 mmHg (0-20); Puncture Site LB
[2020-08-21] MEDS ORDERED: Octreotide Acetate 1,250 MCG in Sodium Chloride 0.9% 250 ML 250 ML IVPB SCH (07:15)
[2020-08-21] MEDS: Pantoprazole 40 MG VIAL IVP SCH ×2 (08:29→21:14)
[2020-08-21] MEDS ORDERED: DC Sedation Protocol FS ONE (08:39)
--- NOTE | 2020-08-21 08:46 | RAD ---
EXAM: CHEST ONE VIEW HISTORY: Pneumonia. Follow-up evaluation COMPARISON: 08/20/2020 FINDINGS: Endotracheal tube remains in place and unchanged in position. There are findings suggestive of dextro cardia. There is a curvilinear parenchymal density at the right lung base which could be related to atelectasis or focal area of pneumonitis. Multiple left-sided rib fractures are again seen. Exact age s are difficult to definitely determine but may be more remote in origin. There is no pneumothorax or pleural effusion seen on the left. There is gaseous distention of the colon. Carotid artery calcif ications are seen overlying the neck bilaterally. IMPRESSION: 1. Patchy and curvilinear parenchymal density right lung base which could be related to volume loss o r pneumonitis. Continued follow-up is recommended. 2. Findings suggesting dextrocardia. 3. Endotracheal tube remain in place. 4. Multiple posterior left-sided rib fractures. Exact ages of these fractures is indeterminate but ma y be more remote in origin.
--- NOTE | 2020-08-21 09:15 | PRG ---
DATE OF SERVICE: 08/21/2020 Thirty five minutes critical care time. SUBJECTIVE: The patient remains intubated, on mechanical ventilation. He will wake up. Follow commands without difficulty. OBJECTIVE: VITAL SIGNS: His temperature is 98.9, pulse 88, blood pressure 109/59, O2 sat 100%. 24-hour intake was 902, output 884. HEENT: Remarkable for icteric sclerae. NECK: No JVD. LUNGS: Clear anteriorly. CARDIOVASCULAR: S1, S2 regular with heart sounds focused on the right side. ABDOMEN: Tense with ascites. EXTREMITIES: Edematous. LABORATORY DATA: COVID test was negative. White blood cell count 14.5, hematocrit 30, platelet count 48. INR is 2.4. pH 7.44, pCO2 of 23, pO2 is 72, on SIMV rate 22, tidal volume 500, PEEP 5, pressure support 10, FiO2 40%. Sodium 132, potassium 4.7, chloride 100, CO2 of 16, BUN 115, creatinine 8.1, glucose 177. DIAGNOSTIC DATA: Chest x-ray shows dextrocardia. ASSESSMENT: 1. Acute respiratory failure, requiring mechanical ventilation. 2. Cirrhosis of the liver. 3. Gastrointestinal bleed. 4. Acute renal failure. 5. Hepatorenal syndrome. PLAN: The patient will be extubated. He has been made DNR. Given his fluid overloaded state, I will cut back on his IV fluid rate significantly. Unfortunately without dialysis, he will probably succumb soon. A therapeutic paracentesis might help. I will defer this to GI and Family Medicine. Job ID: [id number]
--- NOTE | 2020-08-21 11:42 | PRG ---
DATE OF SERVICE: SUBJECTIVE: A 60-year-old gentleman being seen for acute kidney injury. The patient has a unilateral kidney. The patient is extubated and modality done. PHYSICAL EXAMINATION: General: The patient is resting. Vital Signs: Afebrile, pulse 91, breathing 16, blood pressure 104/60. HEENT: Head normocephalic and atraumatic. Eyes intact, no ulcers. Nose intact, no ulcers. Ears intact, no ulcers. Neck: Supple. No JVD. Chest: Symmetrical and clear. Cardiovascular: Shows S1 and S2, no rub, no murmur. Gastrointestinal: Abdomen is distended. Extremities: Show no edema or ulcers. Skin: Shows no rash or petechiae. Musculoskeletal: Shows no joint swelling or stiffness. Genitourinary: Shows no Hare or CVA tenderness. Neurologic: Motor intact. Cranial nerves intact. LABORATORY DATA: Labs show hemoglobin 10.6. Potassium is 4.7, bicarb 16, creatinine 8.0. ASSESSMENT AND PLAN: 1. Acute kidney injury with chronic kidney disease stage 5. We will plan dialysis. 2. Metabolic acidosis. Continue bicarbonate replacement. 3. Anemia, stable. 4. Medication based on GFR appropriate. Job ID: [id number]
--- NOTE | 2020-08-21 14:15 | PDOC.PALCO ---
Palliative Care Consult - Consult Details Requesting Physician: Dr aJuregui Reason for Consult: goals of care, assistance with communication prognosis/disease - Pertinent HPI 60 year old male who arrived to [facility] via EMS with rectal bleeding, hypotension, and rectal bleeding. Subsequent intubation and admission to CCU. Received PRBC, Plasma, albumin and pressure support. Subsequent extubation at time of assessment. Patient reports his last consumption of alcohol was 10/2019. He denies any children or spouse and states he is close to his sister. States he was at [facility] in [place] for several months earlier this year. - Pertinent PMH Congestive heart failure, COPD, Cirrhosis of the liver - Social History Smoking Status: Current every day smoker Smoking: greater than 1 pack/day Alcohol Use: other (Last drink 10/2019) Drug Use History: none Living Situation: independent - Medications MAR Reviewed: Yes - Allergies Allergies/Adverse Reactions: Allergies Allergy/AdvReac Type Severity Reaction Status Date / Time No Known Allergies Allergy Verified 08/20/20 14:38 - Subjective Awake, denies any general complaints. - ROS Constitutional: alert, weakness ENT: other (Negative fo rdifficulity swallowing, throat irritation) Respiratory: other (non productive cough) Cardiology: other (Negative for chest pain, palpitations) Gastrointestinal: other (Negative for nausea, vomiting, diarrhea) Neurological: other (Negative for confusion, numbness) - Objective Vital Signs: Vital Signs - Most Recent Temp Pulse Resp BP Pulse Ox 97.9 F 95 17 116/68 99 08/21/20 12:00 08/21/20 11:52 08/21/20 11:52 08/21/20 11:32 08/21/20 11:52 Palliative Performance Scale: 60 - Physical Exam Constitutional: ill appearing HEENT: moist MMs, scleral icterus Deviation from normal: Weak wet cough, coarse lung sounds bilaterally, expira toyr wheeze Cardiovascular: RRR Gastrointestinal: soft Deviation from normal: Distended Genitourinary: rolle catheter Musculoskeletal: no cyanosis, no clubbing Deviation from normal: Icteric Psychiatric: A&O x 3 - Problem List (1) Palliative care encounter Code(s): Z51.5 - ENCOUNTER FOR PALLIATIVE CARE Current Visit: Yes Status: Acute (2) Acute renal failure Current Visit: Yes Status: Acute (3) Alcoholic cirrhosis Code(s): K70.30 - ALCOHOLIC CIRRHOSIS OF LIVER WITHOUT ASCITES Current Visit: Yes Status: Acute (4) COPD (chronic obstructive pulmonary disease) Current Visit: Yes Status: Acute (5) GI bleed Code(s): K92.2 - GASTROINTESTINAL HEMORRHAGE, UNSPECIFIED Current Visit: Yes Status: Acute (6) Hemorrhagic shock Code(s): R57.8 - OTHER SHOCK Current Visit: Yes Status: Acute (7) Hyperkalemia Code(s): E87.5 - HYPERKALEMIA Current Visit: Yes Status: Acute (8) Hyponatremia Code(s): E87.1 - HYPO-OSMOLALITY AND HYPONATREMIA Current Visit: Yes Status: Acute (9) Thrombocytopenia Code(s): D69.6 - THROMBOCYTOPENIA, UNSPECIFIED Current Visit: Yes Status: Acute - Plan/Recommendations Plan: Introduced palliative care to patient. Appears to have poor health literacy. Attempted to gain insight into patient understanding of severity of liver disease and impact on disease trajectory. MELD 46 Patient extubated today, Palliative care will follow up with further conversation in relation to liver disease paired with co morbid conditions and Goal of Care. Most important to him is "getting healthy" and being with family, he states has one sister. [50] minutes spent on this encounter with >50% of the time in counseling and coordination of care. Thank you for this very appropriate consult.
--- NOTE | 2020-08-21 14:35 | PDOC.FMACP ---
Advance Care Planning - Problem (1) Palliative care encounter Status: Acute Code(s): Z51.5 - ENCOUNTER FOR PALLIATIVE CARE (2) Acute renal failure Status: Acute (3) Alcoholic cirrhosis Status: Acute Code(s): K70.30 - ALCOHOLIC CIRRHOSIS OF LIVER WITHOUT ASCITES (4) COPD (chronic obstructive pulmonary disease) Status: Acute (5) GI bleed Status: Acute Code(s): K92.2 - GASTROINTESTINAL HEMORRHAGE, UNSPECIFIED (6) Hemorrhagic shock Status: Acute Code(s): R57.8 - OTHER SHOCK (7) Hyperkalemia Status: Acute Code(s): E87.5 - HYPERKALEMIA (8) Hyponatremia Status: Acute Code(s): E87.1 - HYPO-OSMOLALITY AND HYPONATREMIA (9) Thrombocytopenia Status: Acute Code(s): D69.6 - THROMBOCYTOPENIA, UNSPECIFIED - Note Participants: patient, palliative care Summary: Palliative Care introduced Advanced Care Planning, opportunity to decline. The diagnosis, prognosis and goals of care were discussed. Appropriate forms and documentation to accomplish the goals of care were discussed. All questions were answered. Mr Herrera elected to complete MPOA and Directive to Physician. Original given to the patient and copy placed on the chart for medical records. Currently continue with full resuscitation measures. The Palliative Care Team will continue to assist with completion of any outstanding forms as identified. Please also refer to Palliative Care notes in note section Time Spent (mins): 15
--- NOTE | 2020-08-21 16:39 | ULT ---
Sonographic guided paracentesis HISTORY: Symptomatic ascites. FINDINGS: After explaining the procedure and answering all questions, sonographic survey showed a lar ge amount of free fluid throughout the abdomen. Sterile technique, buffered local anesthesia, sonographic guidance, and an anterior right lower quadr ant approach were used to carefully advance a 19-gauge Yueh needle and catheter into the free fluid. Catheter was left to drain a total volume of 3.8 L slightly blood-tinged liquid. Catheter was removed with minimal fluid remaining. Patient tolerated the procedure well. IMPRESSION : Technically successful sonographic guided paracentesis 3.8 L.
[2020-08-21] MEDS: cefTRIAXone\\ROCEPHIN 2 GM in Sodium Chloride 0.9% 100 ML IVPB SCH (16:47)
[2020-08-21 17:48] LABS: RBC Count-Automated (BF) 32599 /cu.mm; WBC/Nucleated-Auto (BF) 1301 uL
[2020-08-21 18:03] LABS: BF Color Red; Body Fluid Source Ascites Body Fluid; Clarity Cloudy/Turbid (Clear); Tube # EDTA
[2020-08-21 18:06] LABS: BF Segmented Neutrophils 60 %; Cell Count Non Hematic 12 %; Lymphocytes 28 %
--- NOTE | 2020-08-21 19:02 | PRG ---
DATE OF SERVICE: 08/21/2020 REASON FOR CONSULTATION: Hematochezia, cirrhosis. SUBJECTIVE: Overnight, the patient did have 1 small volume black bowel movement, but has not had any further bowel movements today nor any episodes of hematochezia. He states that he is feeling better when compared to yesterday with lessened shortness of breath. Otherwise, he denies any nausea, vomiting, fevers, chills, or GI bleeding. OBJECTIVE: VITAL SIGNS: Temperature 98.4, pulse 98, blood pressure 98/50, respiratory rate 20, saturating 95% on room air. GENERAL: The patient was lying in bed, in no acute distress. Alert and oriented x4. CARDIOVASCULAR: Regular rate and rhythm with no discernible murmurs, gallops, or rubs. RESPIRATORY: Coarse crackles were heard in the bilateral upper lung avilez with mild end-expiratory wheezing. ABDOMEN: Hypoactive bowel sounds. Soft, nontender to palpation; however, moderate to severe abdominal distention palpation, but with an umbilical hernia present. EXTREMITIES: No cyanosis, clubbing, or edema. LABORATORY DATA: CBC with a white blood cell count of 14.5, hemoglobin 10.6, hematocrit 30.4, platelets 48. INR 2.4. Chemistry with a sodium of 132, potassium 4.7, chloride 100, CO2 is 16, BUN 155, creatinine 8.06, glucose 177, AST 22, ALT 16, alkaline phosphatase 74, total bilirubin 12. Hepatitis C virus antibody positive. IMAGING DATA: The patient underwent upper endoscopy on August 20, 2020, which showed a small to moderate amount of retained dark/black blood within the stomach and the duodenum; however, there were no visible bleeding sites, but instead increased friability of both the gastric and the duodenal mucosa. There was an area within the stomach that showed a small adhered clot, that was located at the distal gastric body along the greater curvature that was subsequently intervened upon with bipolar cauterization with good hemostasis achieved. Multiple ulcers were also seen within the second portion of the duodenum, but all were clean based and slightly crater with no high-risk stigmata bleeding, so no intervention was taken. ASSESSMENT AND PLAN: The patient is a 60-year-old male with past medical history of chronic obstructive pulmonary disease, chronic hepatitis C infection, Kait-Pick disease, dextrocardia and cirrhosis complicated by lower extremity edema and ascites presenting with hematochezia and anemia with hemorrhagic shock. 1. Anemia/hematochezia. The patient initially presented with acute onset of hematochezia that had been present for 5 to 7 days prior to admission. On admission, he was noted to have significant tachycardia, hypotension, and large volume bloody bowel movements in the ER. He subsequently underwent resuscitation with FFP, IV fluids, and blood product with upper endoscopy performed on August 20, 2020, with a small to moderate amount of retained blood seen in the upper GI tract, but no evidence of active bleeding. A small adhered clot within the stomach was concerning for an active GI bleeding source and cauterized with bipolar cauterization with good hemostasis achieved. Three ulcerations were also seen within the second portion of the duodenum, that were nonbleeding and did not display any high-risk stigmata, so no intervention was taken at that time. Since the procedure, he has not had any further episodes of melenic stools or hematochezia, although his H and H does continue to downtrend, which could be indicative of equalization of his new effective blood volume, but could also be indicative of continued trickling/downtrending of his blood counts. Given that since the intervention, he has not had any further episodes of melena or hematochezia, an upper GI bleeding source is more likely either from the area within the gastric body or the duodenal ulcers that are now responding to PPI administration. Recommendations;. a. Would continue to trend his H and H and transfuse as necessary to maintain an H and H of 7/21. b. Continue to monitor clinically for signs of active GI bleeding. c. Continue with pressor support at this time, given his hypotension. d. We will continue the patient on pantoprazole drip for the next 12 to 24 hours, then consider transferring the patient to IV twice daily. e. Advance diet as tolerated. f. Would avoid any anticoagulation for the time being in light of his recent massive GI bleed. 2. Cirrhosis. The patient is presenting with a history of cirrhosis secondary to chronic alcohol use and indicated by thrombocytopenia, presence of ascites, lower extremity edema in the past, and portal hypertensive gastropathy seen on upper endoscopy. At this point, the patient is presenting with decompensated disease most notably seen by his worsening ascites during this admission. At this time, the origin of his cirrhosis is most likely either chronic alcohol abuse, the presence of chronic hepatitis C infection or combination of the two. Calculation of his MELD sodium score yielded a value of 39 with a Child-Javed classification C. However, with his recent massive hematochezia, he has suffered acute kidney injury, most likely resulting in a much elevated score. He does have some hepatic dysfunction noted by an elevated total bilirubin at this time, but could also be secondary to ischemia related to massive blood loss within the last few days. Recommendations;. a. Continue resuscitative efforts for anemia as stated above. b. Would perform paracentesis today for evaluation of possible SBP. c. Would continue to trend his LFTs and INR daily for signs of hepatic dysfunction. d. Would continue to monitor the patient clinically for signs of hepatic encephalopathy, which could be a harbinger of impending liver failure. e. Placing the patient on diuretic therapy is not indicated at this time, given his significant hypotension related to his recent bleeding. We will continue to follow. Please call with any questions. Job ID: [id number]
[2020-08-21] MEDS: Nicotine 14 MG PATCH TD SCH (21:13)
--- NOTE | 2020-08-21 22:22 | CON ---
DATE OF CONSULTATION: HISTORY OF PRESENT ILLNESS: Rodri Paredes is a 60-year-old male patient, who is an alcoholic with thrombocytopenia, coagulopathy, GI bleeding. Dr. Patel yesterday performed upper endoscopy, noting absence of erosions, ulcerations, or masses, absence of varicosities or varices. There was some duodenal erythema. He was transfused 2 units of blood. He has thrombocytopenia and coagulopathy, and as noted above, he is an alcoholic. He is just extubated recently. I have been asked to see him regarding to establish a dialysis access as he has renal failure. He is oliguric and also needs a paracentesis. Hemoglobin was 8.5 on admission, 10.6 today. PT 26, platelet count 48,000 today, potassium 4.7, sodium 132, bilirubin 12 GFR 7, creatinine 8, BUN 155. He has a right femoral vein dialysis catheter. He had a right upper medial arm IV that was just removed. Plan is to place a left groin hemodialysis catheter and initiate dialysis, obtain vein mapping. He will dialyze and if he improves and fares well, then next week, we can place a cuffed tunneled hemodialysis catheter and even consider a fistula, pending his clinical course. ALLERGIES: NONE. PAST MEDICAL HISTORY: COPD, alcoholic cirrhosis, ascites. PAST SURGICAL HISTORY: Lung surgery of some sort. SOCIAL HISTORY: The patient smoked half pack a day as a teenager. He reports being sober for one year. No drug use. REVIEW OF SYSTEMS: He has had GI bleeding. His hemoglobin remained stable. The patient does continue to smoke tobacco. MEDICATIONS: As an outpatient: 1. Furosemide. 2. Spironolactone. PHYSICAL EXAMINATION: VITAL SIGNS: Height 5 feet 5 inches, 132 pounds, blood pressure 113/63, pulse 102, O2 sats 98%. HEAD EARS, EYES, NOSE AND THROAT: Unremarkable. Sclerae are icteric. Skin jaundiced. LUNGS: Clear to auscultation. CARDIAC: Regular rate and rhythm. ABDOMEN: Protuberant. Positive fluid wave with significant ascites. Muscular wasting. Malnutrition. EXTREMITIES: Edema. ASSESSMENT/PLAN: 1. Renal failure, probably chronic and superimposed on acute with hepatorenal syndrome plus placement of hemodialysis catheter, left groin, pending his clinical course. He may need a cuffed tunneled catheter next week. Ultrasound vein mapping and avoid vein access. Preserve veins for dialysis access. 2. Cirrhosis. 3. Ascites. 4. Coagulopathy. 5. Thrombocytopenia. Job ID: [id number]
[2020-08-22 04:37] LABS: INR-International Normal Ratio 2.1
[2020-08-22 04:38] LABS: Platelet Count 24 thou/uL (130-400)
[2020-08-22 05:26] LABS: #Eosinphils 0.1 thou/uL (0.0-0.7); #Lymphocytes 1.2 thou/uL (1.20-3.40); #Monocytes 0.6 thou/uL (0.11-0.59); #Neutrophils 5.3 thou/uL (1.40-6.50); %Basophils 0.2 % (0.0-1.0); %Lymphocytes 16.4 % (21.0-51.0); %Monocytes 7.9 % (0.0-10.0); %Neutrophils 74.6 % (42.0-75.0); Hemoglobin 9.2 g/dL (14.0-18.0); Mean Corpuscular HGB CONC 33.9 g/dL (32.0-36.0); Mean Corpuscular Hemoglobin 34.6 pg (27.0-31.0); Mean Platelet Volume 9.6 fL (7.4-10.4); RBC Distribution Width 15.7 % (11.5-14.5); Red Blood Cell (RBC) Count 2.66 mill/uL (4.70-6.10); White Blood Cell (WBC) Count 7.1 thou/uL (4.8-10.8)
[2020-08-22 05:27] LABS: Anisocytosis SLIGHT = 6-15 cells (100X) (0-5/hpf); Crenated RBC SLIGHT = 1-5 cells (100X) (None Seen); MDiff Complete? YES; Platelet Morphology Comment Appears Decreased
[2020-08-22 05:44] LABS: ALT (SGPT) 14 U/L (8-55); AST (SGOT) 26 U/L (5-34); Albumin 3.2 g/dL (3.5-5.0); Alkaline Phosphatase 61 U/L (40-110); Anion Gap 23 mmol/L (10-20); Bilirubin, Total 9.1 mg/dL (0.2-1.2); Calc. Creatinine Clearance 9 mL/min (70-130); Calcium 7.4 mg/dL (7.8-10.44); Carbon Dioxide 19 mmol/L (22-29); Chloride 99 mmol/L (98-107); Estimated GFR-MDRD 7; Globulin 1.6 g/dL (2.4-3.5); Glucose 117 mg/dL (70-105); Protein, Total 4.8 g/dL (6.0-8.3); Sodium 137 mmol/L (136-145)
[2020-08-22 05:53] LABS: Hep B Surf Ag Non-Reactive S/CO (NonReactive)
[2020-08-22 05:55] LABS: BUN (Urea Nitrogen) 148 mg/dL (8.4-25.7)
--- NOTE | 2020-08-22 07:03 | PDOC.FM ---
- Subjective Subjective: Mr. Paredes has no complaints or concerns. He denies any pain, difficulty breathing, nausea, bleeding. He asks when he can eat. - Objective Vital Signs & Weight: Vital Signs (12 hours) Temp Pulse Ox 08/22/20 04:00 97.7 F 08/22/20 01:06 94 L 08/22/20 00:00 97.8 F 08/21/20 20:00 94 L Weight Admit Weight 58.2 kg Weight 61.7 kg Most Recent Monitor Data Heart Rate from ECG 93 NIBP 102/54 NIBP BP-Mean 70 Respiration from ECG 15 SpO2 95 I&O: 08/21/20 08/22/20 08/23/20 06:59 06:59 06:59 Intake Total 2092.2 2321 Output Total 84 4141 Balance Result Diagrams: 08/22/20 04:10 08/22/20 04:10 Phys Exam - Physical Examination Constitutional: NAD HEENT: moist MMs Respiratory: wheezing present (course breath sounds) Cardiovascular: RRR, no significant murmur Gastrointestinal: non-tender (distended, ascites) Musculoskeletal: no edema, pulses present Neurological: non-focal Psychiatric: normal affect Skin: normal turgor Dx/Plan - Plan Plan: 60 yo M with pmh of cirrhosis 2/2 alcohol use, COPD, and tobacco abuse who presented for hemorrhagic shock 2/2 GI bleed. Hemorrhagic Shock 2/2 GI bleed -In ED: Protonix gtt, Octreotide gtt, 2L of Fluid, and Right femoral central line -s/p 3 U packed RBCs, ffpx1, Vit K -Octreotide stopped, currently on levophed gtt -Consulted GI (08/18), Dr. Patel, Appreciate recs. - Portal gastropathy and ulcers, which was cauterized - Continue to monitor Hgb daily Alcoholic Cirrhosis -Home Meds: Spironolactone, Furosemide -Last hospitalized in April for Ascites -AST: 30, ALT: 19 on admission -He has not seen a GI doctor -MELD: 40, Morality 70% in 3 months -Jacinto-Javed: 13, Class C, life expectancy 1-3 years - s/p paracentesis 08/21, 3.8 L removed SBP - continue rocephin - GI plans that albumin be given days 1 & 3 of treatment Ileus - daily KUB and bisacodyl WI until resolution Thrombocytopenia - platelets 24 today COPD -Has inhaler at home, but does not use them -continue duonebs ARF on CKD -Cr: 7.7 -Consulted Nephrology, appreciate recs. -Hare placed, continue to monitor I&Os -On bicarb drip -Steve was consulted for dialysis access, plan to start tomorrow Thrombocytopenia Plt: downtrending - s/p FFP x1 Tobacco Abuse -Nicoderm patch given Code Status: Full PCP: None Lines: R Femoral, IO in L Humerus Fluids: D5/Sodium Bicarb @ 50 Diet: CL DVT PPx: SCDs, avoid anticoagulation Dispo: Still on pressors, BP still soft, abx for SBP, concern for ileus, PPI GI and nephrology on board. Likely dialysis tomorrow Addendum - Attending - Attending Attestation Date/Time: 08/22/20 7523 I personally evaluated the patient and discussed the management with Dr. Noriega. I agree with the History, Examination, Assessment and Plan documented above with any addition or exceptions noted below. The patient is feeling a little better. He remains on levophed, will wean today. Acute renal failure managed by nephrology, likely starting dialysis tomorrow. Monitor thrombocytopenia. continue antibiotics for sbp. appreciate specialist recs.
--- NOTE | 2020-08-22 07:27 | ULT ---
ULTRASOUND VESSEL MAPPING DIALYSIS ACCESSS: Date: 08/21/2020 HISTORY: Need for dialysis placement. COMPARISON: None. FINDINGS: RIGHT UPPER EXTREMITY BRACHIAL ARTERY: 0.44 cm RADIAL ARTERY: 0.21 cm ULNAR ARTERY: 0.15 cm CEPHALIC VEIN Proximal Arm: 0.29 cm Mid Arm: 0.11 cm Distal Arm: 0.14 cm Antecubital Fossa: 0.15 cm Proximal Forearm: 0.14 cm Mid Forearm: 0.20 cm Distal Forearm: 0.10 cm BASILIC VEIN Proximal Arm: 0.46 cm Mid Arm: 0.28 cm Distal Arm: 0.21 cm Antecubital Fossa: 0.18 cm Proximal Forearm: 0.09 cm Mid Forearm: Not seen Distal Forearm: Not seen LEFT UPPER EXTREMITY BRACHIAL ARTERY: 0.44 cm RADIAL ARTERY: 0.22 cm ULNAR ARTERY: 0.13 cm CEPHALIC VEIN Proximal Arm: 0.12 cm Mid Arm: 0.11 cm Distal Arm: 0.11 cm Antecubital Fossa: 0.13 cm Proximal Forearm: Not seen Mid Forearm: Not seen Distal Forearm: Not seen BASILIC VEIN Proximal Arm: 0.33 cm Mid Arm: 0.26 cm Distal Arm: 0.31 cm Antecubital Fossa: 0.20 cm Proximal Forearm: 0.11 cm Mid Forearm: 0.18 cm Distal Forearm: 0.15 cm The bilateral internal jugular veins and subclavian veins are patent. IMPRESSION: Vascular size as above. POS: [facility]
[2020-08-22] MEDS: Pantoprazole 40 MG VIAL IVP SCH ×2 (08:39→21:59)
[2020-08-22] MEDS: Norepinephrine 8 MG/0.9% NS 250 ML IVPB SCH (09:22)
--- NOTE | 2020-08-22 10:00 | PRG ---
DATE OF SERVICE: 08/22/2020 SUBJECTIVE: This morning, he is awake, alert, and responsive. He was extubated. Still somewhat short of breath. OBJECTIVE: VITAL SIGNS: Blood pressure 118/57, pulse respiratory rate 18. CHEST: Bilateral crackles, rhonchi. CARDIAC: Normal S1, S2. No gallop. ABDOMEN: No masses. LABORATORY DATA: White count 24,000, H and H 9 and 27. Creatinine is 7, BUN is 148. 3 L of ascites was tapped, but his abdomen is still significantly distended. IMPRESSION: Respiratory failure, end-stage liver disease, ascites, worsening renal failure, hepatorenal syndrome. Apparently, the patient is going to get dialyzed. His overall prognosis remains grave. We will continue to follow while he is in the ICU. Job ID: [id number]
--- NOTE | 2020-08-22 10:28 | RAD ---
Radiograph abdomen one view: 08/22/2020 10:08 AM HISTORY: 60-year-old male with abdominal distention FINDINGS: There is gaseous distention of bowel loops throughout the entire abdomen, at least some of which repr esents small intestine. There is gaseous distention of the stomach. A right pelvic central vascular catheter ascends to the level of the lumbosacral junction on the right. A larger caliber left-sided c entral vascular catheter ascends, with distal tip to the right of L3. IMPRESSION: 1.) Abnormal bowel gas pattern with diffuse dilated bowel loops. Recommend left lateral decubitus vie w. Small bowel obstruction versus ileus. 2) bilateral femoral central vascular catheters as described above.
--- NOTE | 2020-08-22 11:37 | PRG ---
DATE OF SERVICE: 08/22/2020 SUBJECTIVE: A 60-year-old gentleman being seen for acute kidney injury. The patient denies any nausea, vomiting, or chest pain. The patient is making urine. OBJECTIVE: GENERAL: The patient is awake and alert. VITAL SIGNS: Afebrile, pulse 93, breathing 16, blood pressure 110/60. HEENT: Head normocephalic and atraumatic. Eyes intact, no ulcers. Nose intact, no ulcers. Ears intact, no ulcers. NECK: Supple. No JVD. CHEST: Symmetrical and clear. CARDIOVASCULAR: Shows S1 and S2, no rub, no murmur. GASTROINTESTINAL: Abdomen is soft, bowel sounds positive. EXTREMITIES: Show no edema or ulcers. SKIN: Shows no rash or petechiae. MUSCULOSKELETAL: Shows no joint swelling or stiffness. GENITOURINARY: Shows no Hare or CVA tenderness. NEUROLOGIC: Motor intact. Cranial nerves intact. LABORATORY DATA: Show hemoglobin 9.2, creatinine 7.7. ASSESSMENT AND PLAN: 1. Chronic kidney disease, stage 5, nonoliguric. No urgent indication for dialysis. 2. Metabolic acidosis, stable. 3. Hyperkalemia, stable. 4. Elevated BUN, most likely because of digested blood. We will follow renal function. We will plan dialysis tomorrow if the urine output drops, or develops hyperkalemia. Job ID: [id number]
--- NOTE | 2020-08-22 12:24 | PRG ---
DATE OF SERVICE: 08/22/2020 REASON FOR CONSULTATION: Hematochezia, cirrhosis. SUBJECTIVE: Overnight, the patient did not have any acute events or problems, nor did he have any further episodes of hematochezia or melena. States that he is doing better when compared to yesterday. He did have approximately 3.8 L of fluid drawn off from paracentesis yesterday with results in the chart. Otherwise, he currently denies any nausea, vomiting, fevers, chills, or GI bleeding. OBJECTIVE: VITAL SIGNS: Temperature 98, pulse 94, blood pressure 98/60, respiratory rate 14, saturating 95% on room air. GENERAL: The patient is lying in bed, in no acute distress. Alert and oriented x4. CARDIOVASCULAR: Regular rate and rhythm with no discernible murmurs, gallops, or rubs. RESPIRATORY: Mild crackles were heard in the bilateral upper lung avilez with mild wheezing. ABDOMEN: Normoactive bowel sounds, but with high-pitched character to them. Soft, tender to palpation across the entire abdomen. Moderate to severe abdominal distention despite paracentesis. Umbilical hernia present. EXTREMITIES: No cyanosis, clubbing, or edema. LABORATORY DATA: CBC with a white blood cell count of 7.1, hemoglobin 9.2, hematocrit 27.2, platelets 24. INR 2.1. Chemistry with a sodium of 137, potassium 4, chloride 99, CO2 19, BUN 148, creatinine 7.7, glucose 117. AST 26, ALT 14, alkaline phosphatase 61, total bilirubin 9.1. Paracentesis fluid with approximately 1301 white blood cells seen in the fluid, which were 60% PMNs. Calculated MELD sodium score of 37. IMAGING DATA: KUB was obtained on August 22, 2020, which showed gaseous distention of bowel loops throughout the entire abdomen, at least some of which were present in small intestine. There was also gaseous distention of the stomach and bilateral femoral central venous catheters stable in appearance. ASSESSMENT AND PLAN: The patient is a 60-year-old male with past medical history of chronic obstructive pulmonary disease, chronic hepatitis C infection, Kiat-Pick disease, dextrocardia, and cirrhosis, complicated by lower extremity edema and ascites, presenting with hematochezia, hemorrhagic shock secondary to his hematochezia, and post hemorrhagic anemia in addition to acute kidney injury. 1. Anemia/hematochezia. The patient initially presented with hematochezia that had been present for 5 to 7 days, but worsened shortly before admission with the patient exhibiting tachycardia, hypotension, and large volume bloody bowel movements in the ER. He underwent resuscitation with upper endoscopy performed on August 20, 2020, with a small to moderate amount of retained blood seen in the upper GI tract in addition to duodenal ulcers and a small adhered clot in the stomach concerning for recent source of bleeding that was intervened upon with bipolar cauterization. In the postprocedure setting, he has not had any further episodes of hematochezia or melena. His H and H have stabilized making the likelihood of continued active bleeding less so. Recommendations. a. We would continue to trend his H and H and transfuse as necessary to maintain an H and H of 06/02. b. Continue to monitor clinically for signs of active GI bleeding. c. We will continue pressor support at this time given his continued hypotension, but wean as tolerated. d. We will transfer the patient to pantoprazole IV b.i.d. e. Construct the patient on a clear liquid diet and assess for response. f. We would continue to hold any anticoagulation at this time in light of his recent GI bleed. 2. Cirrhosis. The patient is presenting with a prior history of cirrhosis, which is likely due to his chronic hepatitis C infection versus chronic alcohol abuse or a combination of the two. At this point, the patient is presenting with decompensated disease, most notably seen with worsening of his ascites during this admission and SBP noted on labs. Current MELD score calculated at 39 with a Child Javed classification C. Recommendations. a. We would continue to trend his LFTs and INR daily for signs of hepatic dysfunction. b. Continue to monitor the patient clinically for signs of hepatic encephalopathy, which could be a harbinger of impending liver failure. 3. Abdominal ascites with spontaneous bacterial peritonitis. The patient presented with increased abdominal distention secondary to ascites with current labs indicative of portal hypertension resultant from his cirrhosis. He does have a history of ascites in the past, for which the patient had been taking furosemide and spironolactone as an outpatient. However, with fluid analysis from his paracentesis, it is indicative of spontaneous bacterial peritonitis for which the patient had already been on antibiotics in light of his GI bleed in a cirrhotic patient. Recommendations. a. We would continue antibiotics daily in light of spontaneous bacterial peritonitis and may need antibiotics in the outpatient setting on a prophylaxis basis. b. We would administer albumin on day one and day three of treatment as part of SBP protocol. c. Diuretic therapy is not indicated at this time due to his significant hypotension. 4. Acute kidney injury/probable acute tubular necrosis. The patient is presenting with significant hypotension related to significant hematochezia resulting in hemorrhagic shock. As such, the patient's BUN and creatinine are extremely abnormal with elevated level of each. However, with administration of IV fluids and sabianism of adequate blood flow to his kidneys, his creatinine is improving, although his BUN is still significantly elevated. It may be due to retained blood within the GI tract. Recommendations. a. We would continue to monitor renal function and continue resuscitative efforts in light of probable ATN. b. If the patient's kidney function starts to decline further, would consider reinstitution of daily albumin for possible HRS. c. We would defer to Nephrology Service for possible dialysis. 5. Abdominal distention/abnormal GI imaging/ileus. Despite the fact that the patient had removal of approximately 3.8 L of ascitic fluid yesterday during paracentesis, today he continues to have significant abdominal distention that was tympanic to percussion. KUB obtained on August 22, 2020, showed dilation of both large and small bowel consistent with an adynamic ileus. At this time, the most likely explanation for his ileus would be the significant hypotension seen on admission and hemorrhagic shock associated with that. At this time, there is no evidence of obstructive or transition point to indicate a possible obstructive process with conservative management more prudent at this time. Recommendations. a. We would continue to monitor the patient with daily KUBs. b. Monitor progress during the course of this hospitalization. Would administer Bisacodyl suppository daily as part of rectal stimulation and stimulation of the bowel to contract and hopefully promote motility. c. We would avoid any narcotics if at all possible as it can affect GI motility. d. We will continue to monitor the patient for further bleeding as stated above and maintain normotensive pressures. We will continue to follow. Please call with any questions. Job ID: [id number]
[2020-08-22 13:37] LABS: HCV log10 3.957 (.); Hep C PCR-Quant 9060 IU/mL (.)
[2020-08-22] MEDS: cefTRIAXone\\ROCEPHIN 2 GM in Sodium Chloride 0.9% 100 ML IVPB SCH (15:12)
[2020-08-22] MEDS: HumaLOG 300 UNITS/3 ML VIAL SC PRN (15:15)
[2020-08-22] MEDS: Nicotine 14 MG PATCH TD SCH (22:21)
[2020-08-23] MEDS: Sodium Bicarbonate 140 MEQ in Dextrose 5% in Water 1,000 ML IV SCH (00:06)
[2020-08-23 04:37] LABS: #Lymphocytes 0.7 thou/uL (1.20-3.40); #Monocytes 0.4 thou/uL (0.11-0.59); #Neutrophils 3.5 thou/uL (1.40-6.50); %Lymphocytes 15.6 % (21.0-51.0); %Monocytes 7.6 % (0.0-10.0); %Neutrophils 75.8 % (42.0-75.0); Hemoglobin 8.9 g/dL (14.0-18.0); Mean Corpuscular HGB CONC 33.2 g/dL (32.0-36.0); Mean Corpuscular Hemoglobin 34.4 pg (27.0-31.0); Mean Platelet Volume 10.1 fL (7.4-10.4); Platelet Count 17 thou/uL (130-400); RBC Distribution Width 15.8 % (11.5-14.5); Red Blood Cell (RBC) Count 2.57 mill/uL (4.70-6.10); White Blood Cell (WBC) Count 4.6 thou/uL (4.8-10.8)
[2020-08-23 04:39] LABS: INR-International Normal Ratio 2.3; Prothrombin Time 25.1 sec (12.0-14.7)
[2020-08-23 04:54] LABS: ALT (SGPT) 15 U/L (8-55); AST (SGOT) 30 U/L (5-34); Albumin 2.5 g/dL (3.5-5.0); Alkaline Phosphatase 52 U/L (40-110); Anion Gap 20 mmol/L (10-20); Bilirubin, Total 8.2 mg/dL (0.2-1.2); Calc. Creatinine Clearance 10 mL/min (70-130); Calcium 7.3 mg/dL (7.8-10.44); Carbon Dioxide 23 mmol/L (22-29); Chloride 97 mmol/L (98-107); Estimated GFR-MDRD 8; Globulin 1.6 g/dL (2.4-3.5); Glucose 106 mg/dL (70-105); Potassium 3.6 mmol/L (3.5-5.1); Protein, Total 4.1 g/dL (6.0-8.3); Sodium 136 mmol/L (136-145)
[2020-08-23 05:06] LABS: BUN (Urea Nitrogen) 147 mg/dL (8.4-25.7)
--- NOTE | 2020-08-23 05:50 | PDOC.FM ---
- Subjective Subjective: Mr. Paredes reports feeling "much better" this morning. He endorses increased energy and says he has been eating well. He says, "I feel great but everyone else seems to think I'm not doing so good." - Objective Vital Signs & Weight: Vital Signs (12 hours) Temp Pulse Resp BP BP Pulse Ox 08/23/20 04:00 97.9 F 90 17 91/52 L 96 08/23/20 00:25 89 L 08/23/20 00:18 91 16 96 08/22/20 19:40 98.1 F 99 16 96/54 L 93 L 08/22/20 18:19 98.0 F 95 16 86/53 L 95 Weight Admit Weight 58.2 kg Weight 62.142 kg Most Recent Monitor Data Heart Rate from ECG 99 NIBP 93/61 NIBP BP-Mean 71 Respiration from ECG 18 SpO2 99 I&O: 08/21/20 08/22/20 08/23/20 06:59 06:59 06:59 Intake Total 2092.2 2321 1219 Output Total 84 4141 615 Balance 2007.2 -1820 604 Result Diagrams: 08/23/20 04:06 08/23/20 04:06 EKG Reviewed by me: Yes (tele: PAT @ 0230, jxn tach @ 2300 w/HR 100s) Phys Exam - Physical Examination Constitutional: NAD icteric sclera Neck: full ROM Respiratory: wheezing present Cardiovascular: RRR, no significant murmur Gastrointestinal: soft, non-tender distended, positive fluid wave Musculoskeletal: pulses present, edema present Neurological: moves all 4 limbs Psychiatric: normal affect, A&O x 3 Deviation from normal: jaundice Dx/Plan (1) Hemorrhagic shock Code(s): R57.8 - OTHER SHOCK Status: Acute (2) Acute renal failure Status: Acute (3) Alcoholic cirrhosis Code(s): K70.30 - ALCOHOLIC CIRRHOSIS OF LIVER WITHOUT ASCITES Status: Acute (4) COPD (chronic obstructive pulmonary disease) Status: Acute (5) GI bleed Code(s): K92.2 - GASTROINTESTINAL HEMORRHAGE, UNSPECIFIED Status: Acute (6) Hyperkalemia Code(s): E87.5 - HYPERKALEMIA Status: Acute (7) Hyponatremia Code(s): E87.1 - HYPO-OSMOLALITY AND HYPONATREMIA Status: Acute - Plan Plan: Plan: 60 yo M with pmh of cirrhosis 2/2 alcohol use, COPD, and tobacco abuse who presented for hemorrhagic shock 2/2 GI bleed. Hemorrhagic Shock 2/2 GI bleed -In ED: Protonix gtt, Octreotide gtt, 2L of Fluid, and Right femoral central l ine -s/p 3 U packed RBCs, ffpx1, Vit K -Octreotide stopped, titrated off levophed and recently moved to floor - Portal gastropathy and ulcers, which was cauterized - Continue to monitor Hgb daily - transfuse if below 7/[address] Patel -Consulted GI (08/18), Dr. Patel: protonix BID, clear liquid diet Cirrhosis secondary to Alcoholism or Hep C -Home Meds: Spironolactone, Furosemide -Last hospitalized in April for Ascites -AST: 30, ALT: 19 on admission -He has not seen a GI doctor in past -MELD: 40, Morality 70% in 3 months -Jacinto-Javed: 13, Class C, life expectancy 1-3 years - s/p paracentesis 08/21, 3.8 L removed -trend LFTS and INR daily -Spoke extensively with patient regarding the state of his liver failure. Patient did not previously understand this his liver function will not return at this point in the disease process. Will continue goals of care discussions with him daily. Palliative consult placed. SBP -continue rocephin -was given albumin while in ICU and Dr. Patel discontinued it so will hold off on anymore administration today Ileus - daily KUB and bisacodyl PA until resolution Thrombocytopenia - platelets 24 --> 17 today COPD -Has inhaler at home, but does not use them -continue duonebs ARF on CKD -Cr: 7.7 --> 7.07 -615mL urine output, K 3.6 -Consulted Nephrology: dialysis if urine output decreases or potassium increases -Hare placed, continue to monitor I&Os -On bicarb drip -Steve was consulted for dialysis access, plan to start tomorrow Thrombocytopenia Plt: downtrending - s/p FFP x1 Tobacco Abuse -Nicoderm patch given Code Status: Full PCP: None Lines: R Femoral, IO in L Humerus Fluids: D5/Sodium Bicarb @ 50 Diet: CL DVT PPx: SCDs, avoid anticoagulation Dispo: BP still soft, abx for SBP, concern for ileus, PPI GI and nephrology on board. awaiting recs. Addendum - Attending - Attending Attestation Date/Time: 08/23/20 8488 I personally evaluated the patient and discussed the management with Dr. Bliss. I agree with the History, Examination, Assessment and Plan documented above with any addition or exceptions noted below. The patient notes he feels better however he remains extremely ill. Dialysis will be initiated, temporary dialysis catheter placed. Pt's thrombocytopenia continues to worsen. A discussion about the pt's overall prognosis and disease state was had with Dr. Bliss and the patient. Continuing antibiotics for sbp. Prognosis poor.
[2020-08-23] MEDS: Bisacodyl 10 MG SUPP PR SCH (08:56)
[2020-08-23] MEDS: Pantoprazole 40 MG VIAL IVP SCH ×2 (08:57→22:07)
--- NOTE | 2020-08-23 09:25 | OP ---
DATE OF PROCEDURE: 08/21/2020 PREOPERATIVE DIAGNOSES: Hepatorenal syndrome, cirrhosis, thrombocytopenia, coagulopathy, gastrointestinal bleeding, renal failure, acidosis, and need of dialysis access. POSTOPERATIVE DIAGNOSES: Hepatorenal syndrome, cirrhosis, thrombocytopenia, coagulopathy, gastrointestinal bleeding, renal failure, acidosis, and need of dialysis access. PROCEDURE PERFORMED: Left femoral vein Trialysis catheter. ANESTHESIA: 1% Xylocaine. DESCRIPTION OF PROCEDURE: With the patient at bedside, left groin was prepared with ChloraPrep and draped in routine fashion. Local anesthetic 1% Xylocaine was infiltrated in the skin and subcutaneous tissue. Trocar catheter cannulated the femoral vein. J-wire threaded. Trocar catheter removed. Skin site enlarged sharply minimally and dilators serially placed and distal port of the Trialysis catheter placed and J-wire removed. Catheter secured with 2 interrupted sutures of 3-0 nylon. Sterile dressing applied. Each port aspirated of blood, flushed with heparinized saline solution. The patient tolerated the procedure well. Job ID: [id number]
--- NOTE | 2020-08-23 12:31 | PRG ---
DATE OF SERVICE: 08/23/2020 SUBJECTIVE: A 60-year-old gentleman, being seen for acute kidney injury. The patient denies any nausea, vomiting, or chest pain. OBJECTIVE: General: The patient is awake and alert. Vital Signs: Afebrile, pulse 75, breathing at 16, blood pressure 87/59. HEENT: Head normocephalic and atraumatic. Eyes intact, no ulcers. Nose intact, no ulcers. Ears intact, no ulcers. Neck: Supple. No JVD. Chest: Symmetrical and clear. Cardiovascular: Shows S1 and S2, no rub, no murmur. Gastrointestinal: Abdomen is soft, bowel sounds positive. Extremities: Show no edema or ulcers. Skin: Shows no rash or petechiae. Musculoskeletal: Shows no joint swelling or stiffness. Genitourinary: Shows no Hare or CVA tenderness. Neurologic: Motor intact. Cranial nerves intact. LABORATORY DATA: Reviewed. ASSESSMENT AND PLAN: 1. Stage 5 chronic kidney disease. We will plan dialysis tomorrow. 2. Uremia, plan dialysis. 3. Hypertension, stable. 4. Anemia, stable. Overall prognosis is poor. Job ID: [id number]
--- NOTE | 2020-08-23 14:17 | RAD ---
Abdomen one view HISTORY: Ileus. COMPARISON: 08/22/2020. FINDINGS: Gaseous distention of the small and large bowel is again demonstrated. Similar to the previ ous study. Patient is rotated rightward. Bilateral femoral catheters are unchanged in position. Irregular shaped density overlies the right lower chest and may represent dense infiltrate of the low er lobe. IMPRESSION : Persistent gaseous distention of the bowel is stable compared to the prior study. Ill-defined opacity, partially visualized at the right lower chest, progressed since the prior study. Please consider dedicated chest radiograph for better characterization.
[2020-08-23] MEDS: Albumin 25% 25 GM/100 ML BOT IVPB SCH ×2 (15:19→22:07)
--- NOTE | 2020-08-23 16:26 | PRG ---
DATE OF SERVICE: 08/23/2020 REASON FOR CONSULTATION: Hematochezia, cirrhosis, hemorrhagic shock. SUBJECTIVE: Yesterday, the patient was downgraded from the ICU to a regular haskins bed, and since that time, has not had any acute events or problems. He currently denies any further episodes of hematochezia or melena and is otherwise feeling better than when he came into the hospital. He has been able to pass a fair amount of flatus in addition to having a nonbloody bowel movement with decreased distention of the abdomen. Otherwise, he denies any nausea, vomiting, fevers, chills, or GI bleeding. OBJECTIVE: VITAL SIGNS: Temperature 97.7, pulse 96, blood pressure 87/49, respiratory rate 20, saturating 96% on room air. GENERAL: The patient was lying in bed, in no acute distress. Alert and oriented x4. CARDIOVASCULAR: Regular rate and rhythm. RESPIRATORY: Clear to auscultation bilaterally upon clearing with cough. ABDOMEN: Normoactive bowel sounds with rare high-pitched character to them. Soft. Mild tenderness to palpation in the right lower quadrant. Moderate abdominal distention. Umbilical hernia present. EXTREMITIES: No cyanosis, clubbing, or edema. LABORATORY DATA: CBC with a white blood cell count of 4.6, hemoglobin 8.9, hematocrit 26.6, platelets 17. INR 2.3. Chemistry with a sodium of 136, potassium 3.6, chloride 97, CO2 of 23, BUN 147, creatinine 7.06, glucose 106, AST 30, ALT 15, alkaline phosphatase 52, total bilirubin 8.2. Calculated MELD sodium score of 37. IMAGING DATA: KUB obtained on August 23, 2020, showed persistent gaseous distention of the small and large bowel that was similar to the previous study. ASSESSMENT AND PLAN: The patient is a 60-year-old male with past medical history of chronic obstructive pulmonary disease, chronic hepatitis C infection, Kait-Pick disease, dextrocardia, and cirrhosis, complicated by lower extremity edema and ascites, presenting with hematochezia, hemorrhagic shock secondary to hematochezia, acute kidney injury/failure. 1. Anemia/hematochezia: The patient initially presented with significant hematochezia associated with tachycardia, hypotension that required infusion of multiple liters of fluid and blood product. The patient responded well to resuscitative efforts with an upper endoscopy performed on August 20, 2020, showing a jksgj-tf-fktikibf amount of retained blood within the stomach and duodenum consistent with the recent bleeding source. However, there were 2 ulcerations seen in the duodenum that were clean based and did not exhibit any high-risk stigmata of bleeding, making those ulcers unlikely to have blood. However, there was an adherent clot within the stomach along the greater curvature that was ultimately intervened upon with bipolar cauterization with good hemostasis achieved. Since the upper endoscopy, he has not had any further episodes of hematochezia and his hemoglobin has stabilized over the last 24 to 48 hours. Recommendations; we would continue to trend his H and H and transfuse as necessary to maintain an H and H of 7/21. Continue to monitor clinically for signs of active gastrointestinal bleeding. Continue the patient on pantoprazole IV b.i.d. and would continue this until seen in the outpatient setting. Advance diet as tolerated. Continue to avoid any anticoagulation. 2. Cirrhosis: The patient is presenting with decompensated cirrhosis secondary to chronic hepatitis C infection versus chronic alcohol abuse versus a combination of the 2. Currently, with a MELD score of 37, indicating a greater than 70% 90-day mortality. Currently, his hepatic problems are guarded, but stable for the time being. Recommendations; we will continue to trend LFTs and INR daily for signs of hepatic dysfunction. Continue to monitor patient clinically for signs of hepatic encephalopathy. 3. Abdominal ascites and spontaneous bacterial peritonitis: The patient presented to the hospital with significant abdominal distention with a paracentesis performed removing 3.8 L of fluid. Fluid analysis was consistent with spontaneous bacterial peritonitis. Currently, the patient is doing much better in terms of abdominal pain and has been receiving antibiotics since admission to the hospital. He did receive albumin on day #1 of hospitalization, now being day #3. Recommendations; we would continue current antibiotics for spontaneous bacterial peritonitis and would continue them for a total duration of therapy of 5 to 7 days. We would administer albumin today (day #3 of treatment) as part of spontaneous bacterial peritonitis protocol. Diuretic therapy is not indicated at this time due to his recent history of hypotension and acute kidney injury. 4. Acute kidney injury/probable acute tubular necrosis: The patient presented with significant hypotension related to his hematochezia resulting in hemorrhagic shock. As a result, the patient now has significant renal dysfunction that is slightly improving over the last 24 hours. However, per Nephrology's recommendations, he is scheduled for dialysis tomorrow. Recommendations; defer to Nephrology for evaluation and administration of dialysis. 5. Abdominal distention/abnormal GI imaging/ileus: During the course of the hospitalization, the patient continued to have increasing abdominal distention despite the removal of 3.8 L of ascitic fluid. KUB obtained on August 22 and August 23 showed dilation of both large and small bowel consistent with an adynamic ileus. At this time, the most likely explanation would be the hypotension associated with his hemorrhagic shock, but the patient does pass gas and is currently having bowel movements making an obstructive process significantly less likely. Recommendations; we will continue to monitor the patient with daily KUB. Minimize any narcotics as it can affect gastrointestinal motility. Continue bisacodyl suppository daily. We would consider erythromycin or neostigmine administration if causing significant abdominal discomfort or the patient stops passing gas or stops having bowel movements. Continue to obtain normotensive pressures in light of possible ischemia creating his ileus. We will continue to follow. Please call with any questions. Job ID: [id number]
[2020-08-23] MEDS: cefTRIAXone\\ROCEPHIN 2 GM in Sodium Chloride 0.9% 100 ML IVPB SCH (16:59)
[2020-08-23] MEDS: Nicotine 14 MG PATCH TD SCH (22:07)
--- NOTE | 2020-08-23 23:27 | RAD ---
XR Chest 1 View Portable History: Lung consolidation Comparison: Radiograph same day. Findings: New right basilar airspace opacity. Cardiac silhouette is in the right hemithorax. Left lung is relatively clear. Old left-sided rib fractures. Impression: Progressive right lower lobe consolidation concerning for infection.
[2020-08-24 04:38] LABS: INR-International Normal Ratio 2.3; Prothrombin Time 25.8 sec (12.0-14.7)
[2020-08-24 04:55] LABS: Platelet Count 15 thou/uL (130-400)
[2020-08-24 05:06] LABS: ALT (SGPT) 14 U/L (8-55); AST (SGOT) 28 U/L (5-34); Alkaline Phosphatase 50 U/L (40-110); Anion Gap 18 mmol/L (10-20); Bilirubin, Total 8.8 mg/dL (0.2-1.2); Calc. Creatinine Clearance 11 mL/min (70-130); Calcium 7.6 mg/dL (7.8-10.44); Carbon Dioxide 27 mmol/L (22-29); Chloride 96 mmol/L (98-107); Estimated GFR-MDRD 9; Globulin 1.4 g/dL (2.4-3.5); Glucose 127 mg/dL (70-105); Potassium 3.4 mmol/L (3.5-5.1); Protein, Total 4.4 g/dL (6.0-8.3); Sodium 138 mmol/L (136-145)
[2020-08-24 05:16] LABS: #Eosinphils 0.1 thou/uL (0.0-0.7); #Lymphocytes 0.7 thou/uL (1.20-3.40); #Monocytes 0.4 thou/uL (0.11-0.59); #Neutrophils 4.4 thou/uL (1.40-6.50); %Eosinophils 1.8 % (0.0-10.0); %Lymphocytes 11.6 % (21.0-51.0); %Monocytes 7.4 % (0.0-10.0); %Neutrophils 79.2 % (42.0-75.0); Anisocytosis SLIGHT = 6-15 cells (100X) (0-5/hpf); MDiff Complete? YES; Macrocytosis SLIGHT = 6-15 cells (100X) (0-5/hpf); Mean Corpuscular HGB CONC 33.3 g/dL (32.0-36.0); Mean Corpuscular Hemoglobin 35.2 pg (27.0-31.0); Platelet Morphology Comment Appears Decreased; RBC Distribution Width 15.8 % (11.5-14.5); Red Blood Cell (RBC) Count 2.55 mill/uL (4.70-6.10); White Blood Cell (WBC) Count 5.6 thou/uL (4.8-10.8)
[2020-08-24 05:18] LABS: BUN (Urea Nitrogen) 140 mg/dL (8.4-25.7)
--- NOTE | 2020-08-24 06:22 | PDOC.FM ---
- Subjective Subjective: Mr. Paredes feels weak today. He did not feel like talking much about his condition saying "I'm fine, I guess." - Objective Vital Signs & Weight: Vital Signs (12 hours) Temp Pulse Resp BP Pulse Ox 08/24/20 05:32 94 16 96 08/24/20 03:12 97.9 F 105 H 18 96/53 L 94 L 08/24/20 00:30 92 18 95 08/24/20 00:24 82/45 L 08/23/20 20:00 99.1 F 96 18 89/52 L 96 08/23/20 19:46 95 16 96 Weight Admit Weight 58.2 kg Weight 63.412 kg Most Recent Monitor Data Heart Rate from ECG 99 NIBP 93/61 NIBP BP-Mean 71 Respiration from ECG 18 SpO2 99 I&O: 08/22/20 08/23/20 08/24/20 06:59 06:59 06:59 Intake Total 2321 1219 1340 Output Total 4141 615 600 Balance -1820 604 740 Result Diagrams: 08/24/20 04:12 08/24/20 04:12 Radiology Reviewed by me: Yes (CXR: R lower lobe consolidation) Phys Exam - Physical Examination Constitutional: NAD sclera icteric Neck: full ROM Respiratory: wheezing present Cardiovascular: RRR, no significant murmur Gastrointestinal: soft, non-tender distended, positive fluid wave Musculoskeletal: no edema, pulses present Neurological: non-focal, moves all 4 limbs Psychiatric: normal affect, A&O x 3 Dx/Plan (1) Hemorrhagic shock Code(s): R57.8 - OTHER SHOCK Status: Acute (2) Acute renal failure Status: Acute (3) Alcoholic cirrhosis Code(s): K70.30 - ALCOHOLIC CIRRHOSIS OF LIVER WITHOUT ASCITES Status: Acute (4) COPD (chronic obstructive pulmonary disease) Status: Acute (5) GI bleed Code(s): K92.2 - GASTROINTESTINAL HEMORRHAGE, UNSPECIFIED Status: Acute (6) Hyperkalemia Code(s): E87.5 - HYPERKALEMIA Status: Acute (7) Hyponatremia Code(s): E87.1 - HYPO-OSMOLALITY AND HYPONATREMIA Status: Acute - Plan Plan: 60 yo M with pmh of cirrhosis 2/2 alcohol use, COPD, and tobacco abuse who presented for hemorrhagic shock 2/2 GI bleed. Hemorrhagic Shock 2/2 GI bleed -In ED: Protonix gtt, Octreotide gtt, 2L of Fluid, and Right femoral central line -s/p 3 U packed RBCs, ffpx1, Vit K -Octreotide stopped, titrated off levophed and recently moved to floor -Portal gastropathy and ulcers, which was cauterized -Continue to monitor Hgb daily - transfuse if below 7/[address] Patel -Consulted GI (08/18), Dr. Patel: protonix BID, clear liquid diet Cirrhosis secondary to Alcoholism and Hep C -Home Meds: Spironolactone, Furosemide. Last hospitalized in April for Ascites. AST: 30, ALT: 19 on admission. He has not seen a GI doctor in past -MELD: 40, Morality 70% in 3 months. Jacinto-Javed: 13, Class C, life expectancy 1-3 years - s/p paracentesis 08/21, 3.8 L removed -trend LFTS and INR daily -Hep C quant: 9060 -Spoke extensively with patient regarding the state of his liver failure. Анна loving did not previously understand this his liver function will not return at this point in the disease process. Will continue goals of care discussions with him daily. Palliative consult placed. Hospital Acquire Pneumonia -CXR revealed R lower lobe consolidation -Afebrile, WBC 5.6 -started levaquin -procal pending -incentive spirometry order q2h SBP -continue rocephin (08/20) for 5-7 days -Received albumin on day 1 of hospitalization and received album yesterday on 08/23 Ileus - daily KUB and bisacodyl WI until resolution Thrombocytopenia - platelets 24 --> 17 -->15 today -blood smear pending -s/p FFP x1 COPD -Has inhaler at home, but does not use them -continue duonebs ARF on CKD -Cr: 7.7 --> 7.07 --> 6.3 -Hare placed, continue to monitor I&Os -On bicarb drip -Steve placed temporary dialysis cather --Consulted Nephrology: Dialysis today Tobacco Abuse -Nicoderm patch given Code Status: Full PCP: None Lines: R Femoral, IO in L Humerus Fluids: D5/Sodium Bicarb @ 50 Diet: CL DVT PPx: SCDs, avoid anticoagulation Dispo: Initiated levaquin for new lung consolidation. Blood smear for thrombocytopenia. Dialysis today. Appreciate GI and Nephro recs.
[2020-08-24] MEDS: Sodium Bicarbonate 140 MEQ in Dextrose 5% in Water 1,000 ML IV SCH (06:31)
[2020-08-24] MEDS: Pantoprazole 40 MG VIAL IVP SCH ×2 (08:32→21:28)
[2020-08-24] MEDS: Bisacodyl 10 MG SUPP PR SCH (08:32)
[2020-08-24] MEDS: Albumin 25% 25 GM/100 ML BOT IVPB SCH ×2 (08:32→15:18)
--- NOTE | 2020-08-24 11:50 | PRG ---
DATE OF SERVICE: 08/24/2020 SUBJECTIVE: Patient was seen and examined at bedside and overnight events noted. Patient denies any shortness of breath or chest pain or palpitation. No history of nausea or vomiting or diarrhea or fever or chills or cramps. OBJECTIVE: GENERAL: This is a well-built male, in no apparent distress. VITAL SIGNS: Temperature 97.6. Heart rate 103. Respiratory rate 14. Blood pressure 98/55. HEENT: . NECK: Supple. CARDIOVASCULAR: S1, S2 heard. Rate and rhythm regular. RESPIRATORY: Clear to auscultation. GASTROINTESTINAL: Abdomen is soft. MUSCULOSKELETAL: 2+ edema. DERMATOLOGIC: No skin rash. NEUROLOGIC: Alert and awake and oriented x3. No focal neurologic deficits. Moving all the extremities. PSYCHIATRIC: Mood and affect normal. LABORATORY DATA: Potassium 3.4, BUN is 140, and creatinine is 6.3. BUN on admission was 164, creatinine was 8.79. ASSESSMENT AND PLAN: 1. Acute kidney injury on chronic kidney disease, stage 4. Renal function with improvement. No dialysis today. 2. History of hypertension. 3. Edema. 4. Hepatorenal syndrome. 5. Anemia. 6. Pancytopenia secondary to liver disease. 7. Liver cirrhosis. Prognosis is guarded. No acute indication for dialysis. We will follow. Job ID: [id number]
--- NOTE | 2020-08-24 13:21 | PRG ---
DATE OF SERVICE: 08/24/2020 REASON FOR CONSULTATION: Hematochezia, cirrhosis, and hemorrhagic shock. SUBJECTIVE: The patient states that he is doing well today with no acute events or problems overnight. He denies any further episodes of hematochezia or melena. He does continue to have nonbloody bowel movements and has been able to pass gas without difficulty, although he does continue to have some nahz-nq-isliwgoj abdominal distention. Otherwise, he denies any nausea, vomiting, fevers, chills, or GI bleeding. Of note, the patient was reluctant to engage in conversation today with responses minimal at best. OBJECTIVE: VITAL SIGNS: Temperature 98, pulse 100, blood pressure 88/50, respiratory rate 17, saturating 94% on room air. GENERAL: The patient was lying in bed, in no acute distress. Alert and oriented x3. CARDIOVASCULAR: Tachycardic rate but regular rhythm. RESPIRATORY: Clear to auscultation bilaterally, but with mild end-expiratory wheezing in the lower lung bases. ABDOMEN: Normoactive bowel sounds with rare high-pitched character them. Soft. Moderate abdominal distention. No tenderness to palpation in all abdominal quadrants. Positive umbilical hernia. EXTREMITIES: No cyanosis, clubbing, or edema with multiple ecchymoses noted in the upper extremities. LABORATORY DATA: CBC with a white blood cell count of 5.6, hemoglobin 9, hematocrit 27, platelets 15. INR 2.3. Chemistry with a sodium of 138, potassium 3.4, chloride 96, CO2 of 27, BUN 140, creatinine 6.3, glucose 127, AST 28, ALT 14, alkaline phosphatase 50, total bilirubin 8.8. Calculated MELD sodium score of 37. IMAGING DATA: No current GI imaging is available for review. ASSESSMENT AND PLAN: The patient is a 60-year-old male with past medical history of chronic obstructive pulmonary disease, chronic hepatitis C infection, Kait-Pick disease, dextrocardia, and cirrhosis, complicated by lower extremity edema and ascites, initially presenting with hematochezia, hemorrhagic shock secondary to hematochezia, and acute kidney injury/failure along with hepatic decompensation. 1. Anemia/hematochezia: The patient initially presented with significant hematochezia resulting in tachycardia and hypotension that required aggressive resuscitative efforts. He ultimately underwent an upper endoscopy on August 20, 2020, showing a xleyk-je-mhshwxsl amount of retained blood within the stomach and the duodenum with 2 clean-based ulcers seen in the duodenum, in addition to an adherent clot seen in the greater curvature. The adherent clot was ultimately intervened upon with bipolar cauterization with no intervention taken on the duodenal ulcers given the low risk of bleeding. Since intervention, he has not had any further episodes of hematochezia or melena with stabilization of his H and H with infusion of blood products. Recommendations; we would continue to trend his H and H and transfuse as necessary to maintain the H and H of 06/02. Continue to monitor clinically for signs of active GI bleeding. Continue pantoprazole IV b.i.d. and we transfer to pantoprazole twice daily in oral formulation shortly before discharge. Advance diet as tolerated. Continue to avoid any anticoagulation. 2. Cirrhosis: The patient is presenting with decompensated cirrhosis secondary to underlying chronic hepatitis C versus alcohol abuse in light of hemorrhagic shock. He did have an elevation in both his transaminases and still has hyperbilirubinemia, indicative of hepatic decompensation. However, he has had a slow downtrending of both his creatinine and total bilirubin, indicative of response to treatment, and slowly improving hepatic function. His MELD score remains relatively unchanged. Recommendations; we would continue to trend his LFTs and INR daily for signs of hepatic dysfunction. Continue to monitor clinically for signs of hepatic encephalopathy. 3. Abdominal ascites and spontaneous bacterial peritonitis: The patient presented to the hospital with significant abdominal distention with paracentesis performed removing 3.8 L of fluid. The fluid analysis was consistent with spontaneous bacterial peritonitis, for which the patient had already been placed on appropriate antibiotics as part of bleeding in a cirrhotic patient. However, cultures of the fluid have not yielded a bacteria to allow for further tailoring of his antibiotics. At this time, I would continue the current antibiotics for spontaneous bacterial peritonitis and continue them for a total duration of therapy of 5 to 7 days. Albumin has already been administered on both day #1 and day #3 of treatment, and diuretic therapy is not indicated at this time due to his recent history of hypotension and acute kidney injury. 4. Acute kidney injury/probable acute tubular necrosis: The patient presented with significant hypotension related to his hematochezia resulting in hemorrhagic shock and significant renal dysfunction. However, the patient continues to have improving renal function with stabilization of his H and H and pressures with no plans for dialysis at this time. Recommendations; defer to Nephrology for further management of this condition. 5. Abdominal distention/abnormal GI imaging/ileus: During the course of this hospitalization, the patient had increased abdominal distention despite removing 3.8 L of ascitic fluid, that was also very tympanic to percussion. KUB obtained during this admission showed dilation of both the large and small bowel consistent with an adynamic ileus. Over the last 24 hours, the patient has had mild improvement in his abdominal distention and has been having bowel movements, making obstruction much less likely. Recommendations; we would continue to monitor daily with KUB to assess response to treatment. Minimize any narcotics. Continue bisacodyl suppository daily. We would hold erythromycin or neostigmine administration given the fact that the patient is having bowel movements and has had significant improvement in his abdominal pain. Continue to maintain normotensive pressures in light of possible ischemia creating his ileus. We will continue to follow. Please call with any questions. Job ID: [id number]
[2020-08-24 13:30] LABS: #Eosinphils 0.1 thou/uL (0.0-0.7); #Lymphocytes 0.4 thou/uL (1.20-3.40); #Monocytes 0.3 thou/uL (0.11-0.59); #Neutrophils 3.6 thou/uL (1.40-6.50); %Eosinophils 1.4 % (0.0-10.0); %Lymphocytes 9.7 % (21.0-51.0); %Monocytes 7.5 % (0.0-10.0); %Neutrophils 81.5 % (42.0-75.0); Mean Corpuscular HGB CONC 34.2 g/dL (32.0-36.0); Mean Corpuscular Hemoglobin 35.6 pg (27.0-31.0); Mean Platelet Volume 9.6 fL (7.4-10.4); Platelet Count 15 thou/uL (130-400); Red Blood Cell (RBC) Count 2.52 mill/uL (4.70-6.10); White Blood Cell (WBC) Count 4.4 thou/uL (4.8-10.8)
[2020-08-24] MEDS ORDERED: Potassium Chloride 40 MEQ in Premix Bag 1 BAG IVPB SCH (13:30)
--- NOTE | 2020-08-24 13:59 | PRG ---
DATE OF SERVICE: 08/24/2020 Mr. Paredes looks very ill this morning. I am afraid he is nearing end-stage liver failure. His elevated to 2.8 at times and his albumin has been as low as 1.7. He also suffered as documented previously a GI bleed. We will continue to follow with the GI Service, whose input we greatly appreciate. Job ID: [id number]
[2020-08-24 14:09] LABS: Ferritin 1450.19 ng/mL (22-322)
[2020-08-24 14:17] LABS: Vitamin B12 Greater than 2000 pg/mL (211-911)
--- NOTE | 2020-08-24 14:46 | PQF ---
CLINICAL DOCUMENTATION CLARIFICATION FORM: Dear Dr. Bliss / Attending Dr. Harringtno Date: 08/24/2020; 08/25/2020 Please exercise your independent, professional judgment in responding to the clarification form. Clinical indicators are provided on the bottom of this form for your review. Please check appropriate box(es): [ ] Sepsis due to: [ ] Severe sepsis with associated acute organ dysfunction: [ ] Acute Kidney injury w/o ATN [ ] Acute Kidney Injury w ATN [ ] Additional/Other: please specify: [ x ] Localized infection without sepsis [ ] Other diagnosis [ ] Unable to determine In addition, please specify: Present on Admission (POA): [ ] Yes [ ] No [ x ] Unable to determine For continuity of documentation, please document condition throughout progress notes and discharge summary. Thank You. CLINICAL INDICATORS - SIGNS / SYMPTOMS / LABS / RESULTS AND LOCATION IN MR *ED Record 08/20: BP 93/59, Temp. 94.7 (Rectal), Resp. 27, Pulse 102 Doctor Notes: arrives in florid hemorrhagic shock from copious large volume witnessed GI bleeding by EMS. *H&P 08/20 (Izaiah): Lab results: WBC 18.9 Attending: He reports feeling increasingly weak and fatigued for about 1 week. Upon arrival to ED he was apparently Hypotensive, hypothermic and altered. *08/22 pn (Sultz) A/P: Abdominal ascites with spontaneous bacterial peritonitis. The pt presented with increased abdominal distention 2/2 ascites with current labs indicative of portal hypertension resultant from his cirrhosis. RISK FACTORS / RESULTS AND LOCATION IN MR *H&P 08/20 (Izaiah): HPI: Hx of COPD and alcoholic cirrhosis. Plan: Hemorrhagic Shock 2/2 Rectal Bleeding. ARF on CKD. Thrombocytopenia *08/22 pn (Sultz) A/P: presenting with prior hx of cirrhosis, which is likely due to his chronic hep C Infection vs chronic alcohol abuse or a combination of the two. ANTHONY/ probable acute tubular necrosis. *08/23 pn (Izaiah): SBP TREATMENTS / RESULTS AND LOCATION IN MR 08/20 Order Norepinephrine 8mg IV MAP >55 08/20 Order Rocephin 2 gm IV q 24 hr. 08/21 Ultra Sound Report: Sonographic guided paracentesis 08/24 pn (Izaiah) SBP. continue rocephin (08/20) for 5-7 days. Thank you, Carrie Brown, RN, BSN [email or web address] This is a permanent part of the Medical Record [facility]
[2020-08-24] MEDS: Potassium Chloride 20 MEQ in Premix Bag 1 BAG IVPB SCH ×2 (15:00→16:59)
[2020-08-24] MEDS: cefTRIAXone\\ROCEPHIN 2 GM in Sodium Chloride 0.9% 100 ML IVPB SCH (15:00)
[2020-08-24] MEDS: Nicotine 14 MG PATCH TD SCH (21:28)
[2020-08-25 04:30] LABS: INR-International Normal Ratio 2.6
[2020-08-25 04:39] LABS: ALT (SGPT) 18 U/L (8-55); AST (SGOT) 33 U/L (5-34); Albumin 2.8 g/dL (3.5-5.0); Alkaline Phosphatase 50 U/L (40-110); Anion Gap 20 mmol/L (10-20); Bilirubin, Total 11.4 mg/dL (0.2-1.2); Calc. Creatinine Clearance 13 mL/min (70-130); Calcium 7.9 mg/dL (7.8-10.44); Carbon Dioxide 29 mmol/L (22-29); Chloride 95 mmol/L (98-107); Estimated GFR-MDRD 11; Globulin 1.5 g/dL (2.4-3.5); Glucose 131 mg/dL (70-105); Platelet Count 16 thou/uL (130-400); Potassium 3.5 mmol/L (3.5-5.1); Protein, Total 4.3 g/dL (6.0-8.3); Sodium 140 mmol/L (136-145)
[2020-08-25 04:50] LABS: BUN (Urea Nitrogen) 133 mg/dL (8.4-25.7)
[2020-08-25] MEDS: Sodium Bicarbonate 140 MEQ in Dextrose 5% in Water 1,000 ML IV SCH (05:05)
[2020-08-25 05:23] LABS: #Eosinphils 0.1 thou/uL (0.0-0.7); #Lymphocytes 0.6 thou/uL (1.20-3.40); #Monocytes 0.4 thou/uL (0.11-0.59); #Neutrophils 4.4 thou/uL (1.40-6.50); %Eosinophils 1.8 % (0.0-10.0); %Monocytes 7.1 % (0.0-10.0); %Neutrophils 81.1 % (42.0-75.0); Hemoglobin 9.2 g/dL (14.0-18.0); MDiff Complete? YES; Mean Corpuscular HGB CONC 33.2 g/dL (32.0-36.0); Mean Corpuscular Hemoglobin 34.9 pg (27.0-31.0); Mean Platelet Volume 10.7 fL (7.4-10.4); Platelet Morphology Comment Appears Decreased; RBC Distribution Width 16.4 % (11.5-14.5); Red Blood Cell (RBC) Count 2.65 mill/uL (4.70-6.10); Target Cells SLIGHT = 2-5 cells (100X) (0-1/hpf); White Blood Cell (WBC) Count 5.5 thou/uL (4.8-10.8)
--- NOTE | 2020-08-25 06:25 | PDOC.FM ---
- Subjective Subjective: Mr. Paredes has no complaints this morning. He has a flat affect and is not particularly conversational. He asked for water and was unable to hold the cup and drink himself and required assistance. - Objective Vital Signs & Weight: Vital Signs (12 hours) Temp Pulse Resp BP Pulse Ox 08/25/20 04:00 97.5 F L 104 H 18 93/55 L 96 08/25/20 00:20 103 H 16 08/24/20 20:00 97.7 F 105 H 18 98/53 L 94 L 08/24/20 18:30 102 H 16 96 Weight Admit Weight 58.2 kg Weight 64.047 kg Most Recent Monitor Data Heart Rate from ECG 99 NIBP 93/61 NIBP BP-Mean 71 Respiration from ECG 18 SpO2 99 I&O: 08/23/20 08/24/20 08/25/20 06:59 06:59 06:59 Intake Total 1219 1340 2060 Output Total 615 600 800 Balance 107 972 7123 Result Diagrams: 08/25/20 04:03 08/25/20 04:03 EKG Reviewed by me: Yes (tele: SR) Radiology Reviewed by me: Yes Radiology: KUB: increase in gaseous distention of colon Phys Exam - Physical Examination dry MMs, icteric sclera Neck: no nodes, supple Respiratory: wheezing present Cardiovascular: RRR, no significant murmur Gastrointestinal: soft distended, positive fluid wave Musculoskeletal: no edema, pulses present Neurological: moves all 4 limbs Psychiatric: A&O x 3 Deviation from normal: flat affect Dx/Plan (1) Hemorrhagic shock Code(s): R57.8 - OTHER SHOCK Status: Acute (2) Acute renal failure Status: Acute (3) Alcoholic cirrhosis Code(s): K70.30 - ALCOHOLIC CIRRHOSIS OF LIVER WITHOUT ASCITES Status: Acute (4) COPD (chronic obstructive pulmonary disease) Status: Acute (5) GI bleed Code(s): K92.2 - GASTROINTESTINAL HEMORRHAGE, UNSPECIFIED Status: Acute (6) Hyperkalemia Code(s): E87.5 - HYPERKALEMIA Status: Acute (7) Hyponatremia Code(s): E87.1 - HYPO-OSMOLALITY AND HYPONATREMIA Status: Acute - Plan Plan: 60 yo M with pmh of cirrhosis 2/2 alcohol use, COPD, and tobacco abuse who presented for hemorrhagic shock 2/2 GI bleed. Tachycardia HR consistently 100s -Concern for decreased fluid status -Patient is currently on CL diet -Consider advancing diet, will await GI recs and follow-up Flat Affect, Decreased mood -Palliative has been seeing patient. He is becoming more distant and not partic ipating in conversations regarding his care. -Aware, will continue to monitor closely and try to engage patient in a respectful manner Hemorrhagic Shock 2/2 GI bleed -In ED: Protonix gtt, Octreotide gtt, 2L of Fluid, and Right femoral central line -s/p 3 U packed RBCs, ffpx1, Vit K -Octreotide stopped, titrated off levophed and recently moved to floor -Portal gastropathy and ulcers, which was cauterized -Continue to monitor Hgb daily - transfuse if below 06/[address] Patel -Consulted GI (08/18), Dr. Patel: protonix BID, clear liquid diet Cirrhosis secondary to Alcoholism and Hep C -Home Meds: Spironolactone, Furosemide. Last hospitalized in April for Ascites. AST: 30, ALT: 19 on admission. He has not seen a GI doctor in past -MELD: 40, Morality 70% in 3 months. Jacinto-Javed: 13, Class C, life expectancy 1-3 years - s/p paracentesis 08/21, 3.8 L removed -trend LFTS and INR daily -Hep C quant: 9060 [facility] Acquire Pneumonia -CXR revealed R lower lobe consolidation -Afebrile, WBC 5.6>5.5 -started levaquin (08/24) -procal 0.96 -incentive spirometry order q2h SBP -continue rocephin (08/20) for 5-7 days -Received two doses of albumin Ileus -daily KUB and bisacodyl [place] until resolution -08/24 KUB reveals increase in gaseous distention of colon Thrombocytopenia - platelets stable at 16 -blood smear pending -s/p FFP x1 COPD -Has inhaler at home, but does not use them -continue duonebs ARF on CKD -Cr: 7.7 --> 7.07 --> 6.3-->5.57 -discontinued rolle today, continue to monitor I&Os -On bicarb drip -Steve placed temporary dialysis cather --Consulted Nephrology: hold on dialysis. Continue to monitor kidney function daily. Tobacco Abuse -Nicoderm patch given Code Status: Full PCP: None Lines: R Femoral, IO in L Humerus Fluids: D5/Sodium Bicarb @ 50 Diet: CL DVT PPx: SCDs, avoid anticoagulation Dispo: May consider advancing patient's diet for better fluid intake. Patient currently unwilling to discuss goals of care with Palliative. Kidney function continues to improve without dialysis. Appreciate GI and Nephro recs.
--- NOTE | 2020-08-25 07:58 | RAD ---
Abdomen one view HISTORY: Abdominal pain. Ileus. COMPARISON: 08/23/2020. FINDINGS: Gaseous distention of the colon has increased slightly since the prior study. Distention of the stomach and small bowel is favored to be stable. Horizontal density along the inferior aspect of the dilated transverse colon represents to bowel aguilar, so that bowel wall thickening is not suspe cted. Lines and tubes are unchanged in position. Consolidation at the right lung base is less well visualiz ed. IMPRESSION : Slight interval increase in degree of gaseous distention of the colon. Other findings are stable.
[2020-08-25] MEDS: Pantoprazole 40 MG VIAL IVP SCH ×2 (08:56→20:35)
[2020-08-25] MEDS: Folic Acid 1 MG TAB PO SCH (09:40)
--- NOTE | 2020-08-25 12:13 | PRG ---
DATE OF SERVICE: 08/25/2020 SUBJECTIVE: Patient was seen and examined at bedside and overnight events noted. Patient denies any shortness of breath or chest pain or palpitation. No history of nausea or vomiting or diarrhea or fever or chills or cramps. OBJECTIVE: GENERAL: This is well-built male in no apparent distress. VITAL SIGNS: Temperature 97. Heart Rate 106. Respiratory rate 20. Blood pressure 105/57. HEENT: Atraumatic, normocephalic. Oral mucosa is moist. NECK: Supple. CARDIOVASCULAR: S1, S2 heard. Rate and rhythm regular. RESPIRATORY: Clear to auscultation. GASTROINTESTINAL: Abdomen is distended. MUSCULOSKELETAL: 1+ edema. DERMATOLOGIC: No skin rash. NEUROLOGIC: Alert and awake and oriented x3. No focal neurologic deficits. Moving all the extremities. PSYCHIATRIC: Mood and affect normal. LABORATORY DATA: Potassium 3.5, BUN is 133 from 140 yesterday and 164 on admission, creatinine is 5.57 from 8.79 on admission and 6.3 yesterday. GFR of 11. ASSESSMENT AND PLAN: 1. Acute kidney injury on chronic kidney disease, stage 4, most likely hepatorenal with improvement without dialysis. Plan is to continue to hold dialysis. I also had discussed with Dr. Wilson to hold off with surgery tomorrow for tunneled dialysis and fistula placement. 2. History of hypertension, currently hypotensive secondary to liver disease. 3. Edema. 4. Hepatorenal syndrome. 5. Anemia with pancytopenia. 6. Liver cirrhosis. 7. Severe hypoalbuminemia. The patient is not able to get albumin administration due to system-wide shortage. We will continue to monitor. No indication for dialysis at this point. Avoid nephrotoxins and we will continue to monitor. If continues to get better, we will have to remove the femoral dialysis catheter. We will follow. Job ID: [id number]
[2020-08-25] MEDS: Sodium Chloride 0.9% 1,000 ML IV SCH (12:28)
--- NOTE | 2020-08-25 14:03 | PRG ---
DATE OF SERVICE: 08/25/2020 SUBJECTIVE: The patient is alert and lucid, but has relatively flat affect. He denies any nausea or vomiting. He denies any abdominal discomfort. No overt bleeding such as melena. PHYSICAL EXAMINATION: VITAL SIGNS: Temperature is 97.7, blood pressure 99/58, pulse of 88. GENERAL: He is awake and alert, answer questions appropriately, but relatively flat affect. HEENT: Shows icteric sclerae bilaterally. Oropharynx is moist. NECK: Supple. No adenopathy. CV: Shows normal S1, S2. Regular rate and rhythm. CHEST: Shows a breath sounds. ABDOMEN: Very protuberant. Mild tympany in the central portion. He has active bowel sounds. EXTREMITIES: Shows 2+ edema. LABORATORY DATA: WBCs 4.4, hemoglobin 9.0, and platelet count of 15. INR is 2.6. Electrolytes within normal range. Creatinine 5.57, bilirubin 11.4, AST of 33, ALT of 18, albumin of 2.8. ASSESSMENT: 1. Status post acute upper gastrointestinal bleed with endoscopy performed showing an adherent clot in the stomach that was cauterized at the base and 2 nonbleeding shallow duodenal ulcer. No further bleeding since endoscopy with blood count remained stable. Possibility of Dieulafoy bleeding exists. 2. Decompensation of cirrhosis from chronic hepatitis C and alcohol. Bilirubin is increasing slowly with INR remains over 2 suggesting significant hepatic synthetic dysfunction. The patient also has portal hypertension manifesting as ascites. 3. Spontaneous bacterial peritonitis, on Rocephin. 4. Acute kidney injury, creatinine slowly trending downward. 5. Abdominal distention from ascites and colon distention. Review of abdominal x-ray today showed some dilatation of transverse colon. He does have audible bowel sounds exam. The patient is on a bowel stimulation with bisacodyl suppository. Erythromycin and neostigmine had been discontinued as the patient had bowel movements. RECOMMENDATIONS: 1. Reportedly, the patient is not ready to discuss palliate palliative care. At this point, supportive care is all we can provide. Continue to trend his blood count and monitor for any recurrent bleeding. Unfortunately, diuretics cannot be given in view of his kidney injury. The patient may need a paracentesis for comfort if he becomes uncomfortable or has respiratory if he has difficulty bleeding. 2. The patient is on both Levaquin and ceftriaxone for presumed pneumonia and spontaneous bacterial peritonitis. The ascitic culture is currently negative. I would recommend to discontinue ceftriaxone as Levaquin should be adequate for empiric treatment of spontaneous bacterial peritonitis. 3. Continue with scheduled Dulcolax suppository daily. 4. We will follow. Job ID: [id number]
--- NOTE | 2020-08-25 14:05 | PRG ---
DATE OF SERVICE: 08/25/2020 I have reviewed the note of Dr. Nikita Bliss. I discussed it with her. I agree with her assessment and plan. We are having palliative care visit with Mr. Paredes regarding his future care. Job ID: [id number]
[2020-08-25] MEDS: Bisacodyl 10 MG SUPP PR SCH (14:17)
[2020-08-25] MEDS: Nicotine 14 MG PATCH TD SCH (20:34)
[2020-08-26 04:57] LABS: #Eosinphils 0.1 thou/uL (0.0-0.7); #Lymphocytes 0.6 thou/uL (1.20-3.40); #Monocytes 0.5 thou/uL (0.11-0.59); #Neutrophils 5.8 thou/uL (1.40-6.50); %Basophils 0.4 % (0.0-1.0); %Eosinophils 1.3 % (0.0-10.0); %Monocytes 6.9 % (0.0-10.0); %Neutrophils 82.5 % (42.0-75.0); Hemoglobin 9.2 g/dL (14.0-18.0); Mean Corpuscular HGB CONC 33.5 g/dL (32.0-36.0); Mean Corpuscular Hemoglobin 35.7 pg (27.0-31.0); Mean Platelet Volume 10.6 fL (7.4-10.4); Platelet Count 31 thou/uL (130-400); RBC Distribution Width 16.4 % (11.5-14.5); Red Blood Cell (RBC) Count 2.58 mill/uL (4.70-6.10)
[2020-08-26 05:20] LABS: ALT (SGPT) 25 U/L (8-55); AST (SGOT) 44 U/L (5-34); Albumin 2.8 g/dL (3.5-5.0); Alkaline Phosphatase 54 U/L (40-110); Anion Gap 17 mmol/L (10-20); Bilirubin, Total 15.8 mg/dL (0.2-1.2); Calc. Creatinine Clearance 15 mL/min (70-130); Calcium 8.4 mg/dL (7.8-10.44); Carbon Dioxide 30 mmol/L (22-29); Chloride 96 mmol/L (98-107); Estimated GFR-MDRD 12; Globulin 1.6 g/dL (2.4-3.5); Glucose 105 mg/dL (70-105); Potassium 3.4 mmol/L (3.5-5.1); Protein, Total 4.4 g/dL (6.0-8.3); Sodium 140 mmol/L (136-145)
[2020-08-26 05:32] LABS: BUN (Urea Nitrogen) 128 mg/dL (8.4-25.7)
[2020-08-26] MEDS ORDERED: Potassium Chloride 40 MEQ in Premix Bag 1 BAG IVPB SCH (06:30)
--- NOTE | 2020-08-26 08:15 | PDOC.FM ---
- Subjective Subjective: Mr. Paredes has no complaints this morning. When a discussion began regarding his goals of care he stated, "I don't know why we have to keep talking about this." - Objective Vital Signs & Weight: Vital Signs (12 hours) Temp Pulse Resp BP Pulse Ox 08/26/20 07:44 86 L 08/26/20 07:42 73 16 86 L 08/26/20 07:27 97.8 F 107 H 18 104/57 L 95 08/26/20 05:08 98 08/26/20 04:27 97.8 F 105 H 16 102/54 L 98 08/25/20 23:39 98 Weight Admit Weight 58.2 kg Weight 64.01 kg Most Recent Monitor Data Heart Rate from ECG 99 NIBP 93/61 NIBP BP-Mean 71 Respiration from ECG 18 SpO2 99 I&O: 08/25/20 08/26/20 08/27/20 06:59 06:59 06:59 Intake Total 2060 590 Output Total 800 740 Balance 1260 -150 Result Diagrams: 08/26/20 04:13 08/26/20 04:13 EKG Reviewed by me: Yes (tele: 10 and 6 beats of PAT, 6 and 4 beats of Vtach) Phys Exam - Physical Examination Constitutional: NAD sclera icteric b/l Neck: no nodes, supple Respiratory: wheezing present Cardiovascular: RRR, no significant murmur Gastrointestinal: soft, non-tender distention Musculoskeletal: no edema, pulses present Neurological: moves all 4 limbs Psychiatric: A&O x 3 Deviation from normal: flat affect Deviation from normal: jaundice Dx/Plan (1) Hemorrhagic shock Code(s): R57.8 - OTHER SHOCK Status: Acute (2) Acute renal failure Status: Acute (3) Alcoholic cirrhosis Code(s): K70.30 - ALCOHOLIC CIRRHOSIS OF LIVER WITHOUT ASCITES Status: Acute (4) COPD (chronic obstructive pulmonary disease) Status: Acute (5) GI bleed Code(s): K92.2 - GASTROINTESTINAL HEMORRHAGE, UNSPECIFIED Status: Acute (6) Hyperkalemia Code(s): E87.5 - HYPERKALEMIA Status: Acute (7) Hyponatremia Code(s): E87.1 - HYPO-OSMOLALITY AND HYPONATREMIA Status: Acute - Plan Plan: 60 yo M with pmh of cirrhosis 2/2 alcohol use, COPD, and tobacco abuse who presented for hemorrhagic shock 2/2 GI bleed. Flat Affect, Decreased mood -Palliative has been seeing patient and has had conversations with him regarding his prognosis and GOC. Included sister in conversation yesterday. Following closely -Aware, will continue to monitor closely and try to engage patient in a respectful manner Hemorrhagic Shock 2/2 GI bleed -In ED: Protonix gtt, Octreotide gtt, 2L of Fluid, and Right femoral central line -s/p 3 U packed RBCs, ffpx1, Vit K -Octreotide stopped, titrated off levophed -Portal gastropathy and ulcers, which was cauterized -Continue to monitor Hgb daily - transfuse if below 06/[address] Patel -Consulted GI (08/18), Dr. Patel: protonix BID, consider therapeutic paracentesis Cirrhosis secondary to Alcoholism and Hep C -Home Meds: Spironolactone, Furosemide. Last hospitalized in April for Ascites. AST: 30, ALT: 19 on admission. He has not seen a GI doctor in past -MELD: 40, Morality 70% in 3 months. Jacinto-Javed: 13, Class C, life expectancy 1-3 years - s/p paracentesis 08/21, 3.8 L removed -trend LFTS and INR daily -Hep C quant: 9060 [facility] Acquire Pneumonia -CXR revealed R lower lobe consolidation -Afebrile, WBC 5.6>5.5 -started levaquin (08/24) -procal 0.96 -incentive spirometry order q2h SBP -Rocephin (08/20-/08/25) -Received one dose of albumin. Hospital shortage kept him from getting a second dose. Ileus -daily KUB and bisacodyl [place] until resolution -08/24 KUB reveals increase in gaseous distention of colon Thrombocytopenia -s/p FFP x1 on admission - plt 16 -Nursing reported increasing bleeding of femoral cath on 08/25 that did not respond to applied pressure. Transfused 1uFFP. Plt 31 this AM. COPD -Has inhaler at home, but does not use them -continue duonebs ARF on CKD -Cr: 7.7 --> 7.07 --> 6.3-->5.57-->4.9 -monitor I&Os -bicarb drip discontinued -NS 50mL/hr -Coggon placed temporary dialysis cather --Consulted Nephrology: hold on dialysis. Continue to monitor kidney function daily. Tobacco Abuse -Nicoderm patch given Code Status: Full PCP: None Lines: R Femoral, IO in L Humerus Fluids: NS 50mL/hr Diet: HH DVT PPx: SCDs, avoid anticoagulation Dispo: Continue GOC discussions daily. Palliative following closely. Kidney function continues to improve without dialysis. Appreciate GI and Nephro recs.
[2020-08-26] MEDS: Pantoprazole 40 MG VIAL IVP SCH ×2 (09:08→20:04)
[2020-08-26] MEDS: Folic Acid 1 MG TAB PO SCH (09:09)
[2020-08-26] MEDS: Bisacodyl 10 MG SUPP PR SCH (09:09)
[2020-08-26] MEDS: Sodium Chloride 0.9% 1,000 ML IV SCH (09:12)
--- NOTE | 2020-08-26 11:05 | PRG ---
DATE OF SERVICE: 08/26/2020 SUBJECTIVE: Patient was seen and examined at bedside and overnight events noted. Patient denies any shortness of breath or chest pain or palpitation. No history of nausea or vomiting or diarrhea or fever or chills or cramps. OBJECTIVE: GENERAL: This is a well-built male, in no apparent distress. VITAL SIGNS: Temperature 97.8. Heart Rate 74. Respiratory rate 18. Blood pressure 104/57. HEENT: Icterus present. NECK: Supple. CARDIOVASCULAR: S1, S2 heard. Rate and rhythm regular. RESPIRATORY: Clear to auscultation. GASTROINTESTINAL: Abdomen is soft. MUSCULOSKELETAL: 2+ edema. DERMATOLOGIC/SKIN: Icterus present. NEUROLOGIC: Alert and awake and oriented x3. No focal neurologic deficits. Moving all the extremities. PSYCHIATRIC: Mood and affect normal. LABORATORY DATA: Potassium 3.4, BUN is 128, creatinine is 4.9. ASSESSMENT AND PLAN: 1. Acute kidney injury on chronic kidney disease stage 4 secondary to hepatorenal syndrome. Renal function getting better after holding the diuretics. 2. Hypokalemia. 3. Alkalosis. 4. Edema. 5. History of cirrhosis, hepatorenal. 6. Hypotension. 7. Pancytopenia. Overall prognosis poor, but renal function slowly getting better. Continue to hold diuretics if tolerated and monitor renal function. Avoid nephrotoxins. Albumin p.r.n. if available. We will follow. Job ID: [id number]
--- NOTE | 2020-08-26 11:45 | PRG ---
DATE OF SERVICE: 08/26/2020 SUBJECTIVE: Mr. Paredes says he is feeling okay. He is not having any abdominal pain. Abdominal distention feels about the same as yesterday to him. He has not had any melena or hematochezia, has been passing gas, and tolerated his breakfast this morning. OBJECTIVE: VITAL SIGNS: Temperature 97.8, pulse 73, blood pressure 104/57, 95% oxygen saturation on room air. GENERAL: Jaundiced, chronically ill, nontoxic appearing, in no distress. HEART: Regular rate and rhythm. LUNGS: Clear to auscultation bilaterally. ABDOMEN: Protuberant, dull to percussion on the flanks. Bowel sounds active. Nontender to palpation. EXTREMITIES: Trace pretibial edema. LABORATORY STUDIES: INR up to 2.6. Hemoglobin stable at 9.2, WBC 7.0, platelets 31. Sodium 140, potassium 3.4, BUN 128, creatinine 4.90. Total bilirubin up to 15.8, alkaline phosphatase 54, AST 44, ALT 25. AFP is less than 2.0. Ascites fluid studies from admission are consistent with SBP with WBC 1301, 60% neutrophils, fluid albumin 0.5, total protein less than 1.0. Hepatitis C antibody is positive. Viral load pending. Hepatitis B surface antigen negative. Hepatitis A IgM negative. COVID negative. ASSESSMENT AND PLAN: 1. Spontaneous bacterial peritonitis, currently on Levaquin. No further abdominal pain symptoms. 2. Decompensated cirrhosis from alcohol and hepatitis C. This is in the context of spontaneous bacterial peritonitis, which is being treated. Overall, prognosis is very poor. He has profound thrombocytopenia and coagulopathy. 3. Acute kidney injury, slowly improving this admission. 4. Post recent gastrointestinal bleed with probable Dieulafoy lesion, cauterized by Dr. Patel. Hemoglobin has been stable over the past several days. Continue with IV Protonix q.12 hours, transition to oral dosing twice daily on hospital discharge. Overall prognosis remains poor. Gastroenterology can continue to follow along. Please call anytime with questions or concerns. Job ID: [id number]
--- NOTE | 2020-08-26 12:00 | PDOC.PALPN ---
Palliative Progress Note - Subjective States "I feel ok". Withdrawn, poor historian. Fair intake, denies discomfort with meals related to abdominal pain, nausea. - Objective Vital Signs: Vital Signs - Most Recent Temp Pulse Resp BP Pulse Ox 97.8 F 73 16 104/57 L 86 L 08/26/20 07:27 08/26/20 07:42 08/26/20 07:42 08/26/20 07:27 08/26/20 07:44 - Physical Exam Constitutional: ill appearing HEENT: EOMI, moist MMs, scleral icterus Respiratory: unlabored breathing Deviation from normal: weak wet cough Cardiovascular: RRR Gastrointestinal: soft, non-tender Deviation from normal: Distended Musculoskeletal: edema present Neurology: moves all 4 limbs, no focal deficits Deviation from normal: icteric Psychiatric: A&O x 3, flat affect - Assessment (1) Palliative care encounter Code(s): Z51.5 - ENCOUNTER FOR PALLIATIVE CARE Current Visit: Yes Status: Acute (2) Acute renal failure Current Visit: Yes Status: Acute (3) Alcoholic cirrhosis Code(s): K70.30 - ALCOHOLIC CIRRHOSIS OF LIVER WITHOUT ASCITES Current Visit: Yes Status: Acute (4) COPD (chronic obstructive pulmonary disease) Current Visit: Yes Status: Acute (5) GI bleed Code(s): K92.2 - GASTROINTESTINAL HEMORRHAGE, UNSPECIFIED Current Visit: Yes Status: Acute (6) Hemorrhagic shock Code(s): R57.8 - OTHER SHOCK Current Visit: Yes Status: Acute (7) Hyperkalemia Code(s): E87.5 - HYPERKALEMIA Current Visit: Yes Status: Acute (8) Hyponatremia Code(s): E87.1 - HYPO-OSMOLALITY AND HYPONATREMIA Current Visit: Yes Status: Acute (9) Thrombocytopenia Code(s): D69.6 - THROMBOCYTOPENIA, UNSPECIFIED Current Visit: Yes Status: Acute - Plan Plan: Attempted to revisit life review, patient private and appears to have difficulty at times with remote memory. States he was born in [facility], has one living sibling/his sister. Continue to attempt to educate in relation to decompensated cirrhosis and hepatitis C with poor prognosis and complications related to disease processes. Patient is withdrawn when conversation is introduced. Goal is to transition to independent home setting, would consider home health for PT. Consideration may be given to a home health with palliative and hospice services allowing for transition of care if patient is interested. Concern is patient weakness, disease progression prohibiting fully independent with ADL's. Continue with full resuscitation and aggressive measures. [35] minutes spent on this encounter with >50% of the time in counseling and coordination of care. - ROS Constitutional: alert, weakness Eyes: other (Denies visual changes) ENT: other (denies difficulity swallowing, throat irritation) Respiratory: other (weak cough) Gastrointestinal: other (denies nausea, diarrhea, vomiting) Skin: other (denies puritis)
--- NOTE | 2020-08-26 12:39 | PDOC.EVN ---
Event Note - Event Note Event Note: The Resident Medicine Team was paged at ~1215 regarding patient's ongoing slow bleeding from femoral venous access sites. PGY-2 Resident evaluated patient at bedside and confirm that there was a mild, slow oozing of blood at both femoral catheter sites - right worse than left. Patient denied any complaints at the time of evaluation and did not endorse chest pain or SOB. Physical exam did not reveal oral or rectal bleeding, and review of radiation monitor revealed a HR of 107. Gave verbal order to Nursing Staff to apply pressure dressings with 5 LBS weights and repeat CBC - will be notified via [employer] once results are confirmed.
[2020-08-26 13:13] LABS: Hemoglobin 9.2 g/dL (14.0-18.0); Mean Corpuscular HGB CONC 33.5 g/dL (32.0-36.0); Mean Corpuscular Hemoglobin 35.9 pg (27.0-31.0); Mean Platelet Volume 10.1 fL (7.4-10.4); Platelet Count 25 thou/uL (130-400); RBC Distribution Width 16.7 % (11.5-14.5); Red Blood Cell (RBC) Count 2.55 mill/uL (4.70-6.10); White Blood Cell (WBC) Count 6.9 thou/uL (4.8-10.8)
--- NOTE | 2020-08-26 14:02 | PRG ---
DATE OF SERVICE: 08/26/2020 I have examined Mr. Paredes and read the note of Dr. Nikita Bliss and discussed the case with her. I agree with her assessment and plan. Mr. Paredes had developed some slow oozing around his femoral catheter sites. We went ahead and gave him some platelets yesterday bringing them up to 31,000. He is still having intermittent oozing from these sites. His overall prognosis is extremely poor as he has a significant elevation of his bilirubin and intermittent elevations of his protime signaling a very decompensated liver bordering on liver failure. He is not encephalopathic overtly. We appreciate the input from the GI Service, and we will continue supportive care. We are having Palliative Care work with the family to determine their desires for his long-term care. Job ID: [id number]
--- NOTE | 2020-08-26 15:47 | RAD ---
Exam: 1 view abdomen COMPARISON: 08/25/2020 HISTORY: Ileus FINDINGS: Redemonstration of bilateral femoral vascular catheters, unchanged in position. Redemonstra tion of air-filled distended loops of small bowel and colon. The overall bowel gas pattern has not changed. No evidence of pneumoperitoneum on this supine projection IMPRESSION: No significant interval change.
[2020-08-26] MEDS: Nicotine 14 MG PATCH TD SCH (20:03)
[2020-08-27] MEDS: Sodium Chloride 0.9% 1,000 ML IV SCH (04:03)
--- NOTE | 2020-08-27 06:20 | PDOC.FM ---
- Subjective Subjective: Mr. Paredes seems more energized this morning. His affect is improved from previous days. After lengthy discussion regarding prognosis patient expressed that he would still want resuscitation efforts and to remain full code. He is open to going to a nursing facility after the hospital rather than going home. - Objective Vital Signs & Weight: Vital Signs (12 hours) Temp Pulse Pulse Resp BP BP Pulse Ox 08/27/20 03:17 98.4 F 114 H 20 90/54 L 94 L 08/27/20 00:19 20 08/26/20 19:27 97.8 F 109 H 18 95/53 L 98 08/26/20 18:48 108 H 16 96 08/26/20 18:21 97.8 F 108 H 18 104/56 L 96 Weight Admit Weight 58.2 kg Weight 63.997 kg Most Recent Monitor Data Heart Rate from ECG 99 NIBP 93/61 NIBP BP-Mean 71 Respiration from ECG 18 SpO2 99 I&O: 08/25/20 08/26/20 08/27/20 06:59 06:59 06:59 Intake Total 2060 590 1276 Output Total 800 740 200 Balance 1260 -150 1076 Result Diagrams: 08/27/20 09:20 08/27/20 09:20 EKG Reviewed by me: Yes (tele: bigeminal and trigeminal PVCs) Phys Exam - Physical Examination Constitutional: NAD HEENT: moist MMs sclera icteric Neck: no nodes, supple Respiratory: wheezing present Cardiovascular: RRR, no significant murmur Gastrointestinal: soft, non-tender distended Musculoskeletal: edema present Neurological: non-focal Psychiatric: normal affect, A&O x 3 Dx/Plan (1) Hemorrhagic shock Code(s): R57.8 - OTHER SHOCK Status: Acute (2) Acute renal failure Status: Acute (3) Alcoholic cirrhosis Code(s): K70.30 - ALCOHOLIC CIRRHOSIS OF LIVER WITHOUT ASCITES Status: Acute (4) COPD (chronic obstructive pulmonary disease) Status: Acute (5) GI bleed Code(s): K92.2 - GASTROINTESTINAL HEMORRHAGE, UNSPECIFIED Status: Acute (6) Hyperkalemia Code(s): E87.5 - HYPERKALEMIA Status: Acute (7) Hyponatremia Code(s): E87.1 - HYPO-OSMOLALITY AND HYPONATREMIA Status: Acute - Plan Plan: 60 yo M with pmh of cirrhosis 2/2 alcohol use, COPD, and tobacco abuse who presented for hemorrhagic shock 2/2 GI bleed. Flat Affect, Decreased mood -Improved today. Patient continues to desire resuscitation efforts and to remain full code. -Palliative has been seeing patient and has had conversations with him regarding his prognosis and GOC. Sister is accepting of prognosis and desires home health. -Aware, will continue to monitor closely and try to engage patient in a respectful manner Hemorrhagic Shock 2/2 GI bleed -In ED: Protonix gtt, Octreotide gtt, 2L of Fluid, and Right femoral central galo e -s/p 3 U packed RBCs, ffpx1, Vit K -Octreotide stopped, titrated off levophed -Portal gastropathy and ulcers, which was cauterized -Continue to monitor Hgb daily - transfuse if below 7/[address] Patel -Consulted GI (08/18), Dr. Patel: protonix BID, consider therapeutic paracentesis Cirrhosis secondary to Alcoholism and Hep C -Home Meds: Spironolactone, Furosemide. Last hospitalized in April for Ascites. AST: 30, ALT: 19 on admission. He has not seen a GI doctor in past -MELD: 40, Morality 70% in 3 months. Jacinto-Javed: 13, Class C, life expectancy 1-3 years - s/p paracentesis 08/21, 3.8 L removed -trend LFTS and INR daily -Hep C quant: 9060 Hospital Acquire Pneumonia -CXR revealed R lower lobe consolidation -Afebrile, WBC 5.6>5.5 -started levaquin (08/24) -procal 0.96 -incentive spirometry order q2h SBP -Rocephin (08/20-/08/25) -Received one dose of albumin. Hospital shortage kept him from getting a second dose. Ileus -daily KUB and bisacodyl CT until resolution -08/24 KUB reveals increase in gaseous distention of colon, 08/26 KUB stable -Patient had bowel movement on 08/25. Will discontinue daily KUBs Thrombocytopenia -s/p FFP x1 on admission - plt 16 -Nursing reported increasing bleeding of femoral cath on 08/25 that did not respond to applied pressure. Transfused 1uFFP. Plt 31 this AM. -Bleeding event from femoral cath on 10/14. Nursing applied pressure with sand bag and platelets were rechecked and found to be 25. -AM platelet pending COPD -Has inhaler at home, but does not use them -continue duonebs ARF on CKD -Cr: 7.7 --> 7.07 --> 6.3-->5.57-->4.9 -monitor I&Os -bicarb drip discontinued -NS 50mL/hr -Steve placed temporary dialysis cather --Consulted Nephrology: hold on dialysis. Continue to monitor kidney function daily. Tobacco Abuse -Nicoderm patch given Code Status: Full PCP: None Lines: R Femoral Fluids: NS 50mL/hr Diet: HH DVT PPx: SCDs, avoid anticoagulation Dispo: Continue GOC discussions daily. Palliative following closely. Kidney function continues to improve without dialysis. Appreciate GI and Nephro recs. Will check with GI and Nephro today regarding dispo
[2020-08-27] MEDS: Pantoprazole 40 MG VIAL IVP SCH ×2 (09:23→20:10)
[2020-08-27] MEDS: Folic Acid 1 MG TAB PO SCH (09:24)
[2020-08-27] MEDS: Bisacodyl 10 MG SUPP PR SCH (09:25)
[2020-08-27 09:47] LABS: #Eosinphils 0.1 thou/uL (0.0-0.7); #Lymphocytes 0.7 thou/uL (1.20-3.40); #Monocytes 0.4 thou/uL (0.11-0.59); #Neutrophils 6.7 thou/uL (1.40-6.50); %Basophils 0.2 % (0.0-1.0); %Eosinophils 1.4 % (0.0-10.0); %Lymphocytes 9.2 % (21.0-51.0); %Monocytes 5.1 % (0.0-10.0); %Neutrophils 84.1 % (42.0-75.0); Mean Corpuscular HGB CONC 32.4 g/dL (32.0-36.0); Mean Corpuscular Hemoglobin 35.4 pg (27.0-31.0); Mean Platelet Volume 9.3 fL (7.4-10.4); Platelet Count 34 thou/uL (130-400); RBC Distribution Width 16.8 % (11.5-14.5); Red Blood Cell (RBC) Count 2.54 mill/uL (4.70-6.10)
[2020-08-27 10:05] LABS: ALT (SGPT) 24 U/L (8-55); AST (SGOT) 47 U/L (5-34); Albumin 2.7 g/dL (3.5-5.0); Alkaline Phosphatase 62 U/L (40-110); Anion Gap 15 mmol/L (10-20); Bilirubin, Total 17.7 mg/dL (0.2-1.2); Calc. Creatinine Clearance 15 mL/min (70-130); Calcium 8.3 mg/dL (7.8-10.44); Carbon Dioxide 30 mmol/L (22-29); Chloride 98 mmol/L (98-107); Estimated GFR-MDRD 12; Globulin 1.7 g/dL (2.4-3.5); Glucose 92 mg/dL (70-105); Potassium 3.5 mmol/L (3.5-5.1); Protein, Total 4.4 g/dL (6.0-8.3); Sodium 139 mmol/L (136-145)
[2020-08-27 10:16] LABS: BUN (Urea Nitrogen) 132 mg/dL (8.4-25.7)
--- NOTE | 2020-08-27 11:58 | PRG ---
DATE OF SERVICE: 08/27/2020 SUBJECTIVE: Patient was seen and examined at bedside and overnight events noted. Patient denies any shortness of breath or chest pain or palpitation. No history of nausea or vomiting or diarrhea or fever or chills or cramps. OBJECTIVE: GENERAL: This is a well-built male, in no apparent distress. VITAL SIGNS: Temperature 99.2. Heart rate 108. Respiratory rate 18. Blood pressure 103/56. HEENT: Atraumatic, normocephalic. Oral mucosa is moist NECK: Supple. CARDIOVASCULAR: S1, S2 heard. Rate and rhythm regular. RESPIRATORY: Clear to auscultation. GASTROINTESTINAL: Abdomen is soft. MUSCULOSKELETAL: No tenderness. 1+ edema. DERMATOLOGIC/SKIN: No skin rash. Icterus present. NEUROLOGIC: Alert and awake and oriented X3. No focal neurologic deficits. Moving all the extremities. PSYCHIATRIC: Mood and affect normal. LABORATORY DATA: Potassium 3.5, BUN is 132, creatinine is 4.8. ASSESSMENT AND PLAN: 1. Acute kidney injury, stable. No acute indication for dialysis. 2. Hypokalemia, better. 3. Alkalosis, stable. 4. Cirrhosis. 5. Hypertension. 6. Pancytopenia. Overall prognosis is poor. No acute indication for dialysis. We will follow. Job ID: [id number]
--- NOTE | 2020-08-27 14:27 | PRG ---
DATE OF SERVICE: 08/27/2020 Mr. Paredes is status quo. His prognosis remains extremely grim. I think we have done all we can for him in the hospital and begin to arrange SNF placement. Job ID: [id number]
--- NOTE | 2020-08-27 16:01 | PRG ---
DATE OF SERVICE: 08/27/2020 SUBJECTIVE: Mr. Paredes has had no further bleeding after an upper endoscopy showed some clot in the stomach. He is on Levaquin for possible SBP as well. He is drinking water without complaints otherwise. OBJECTIVE: VITAL SIGNS: Pulse 105, temperature 98, blood pressure 103 to 96 over 56 to 52, T-max 99.2. LABORATORY DATA: White count 8, hemoglobin 9, and platelet count 34,000. INR 2.6 on the 13th. Sodium 139, potassium 3.5, BUN and creatinine 132 and 4.82 today, down from 4.9 yesterday. Tap was consistent with SBP on admission. Cultures were negative. Blood cultures never drawn on admission. ASSESSMENT: 1. [id number] renal failure, slightly improved. 2. Cirrhosis, alcoholic hepatitis C. 3. Gastrointestinal bleed from a vascular lesion of unclear etiology. Apparently, this was not a varix. It is a small arteriovenous malformation. 4. Spontaneous bacterial peritonitis, remains on Levaquin. RECOMMENDATIONS: 1. Continue IV PPI. 2. The patient's initial course of antibiotics renal functions improved, we will consider adding diuretics to his regimen would not at this point in time with the risk of precipitating acute renal failure. We will follow along with you. Job ID: [id number]
[2020-08-27] MEDS: Nicotine 14 MG PATCH TD SCH (20:10)
[2020-08-28] MEDS: Sodium Chloride 0.9% 1,000 ML IV SCH ×2 (00:51→18:59)
--- NOTE | 2020-08-28 06:37 | PDOC.FM ---
- Subjective Subjective: Mr. Paredes has no complaints this morning. Nursing reports he has started refusing medicines and treatments. He denies any abdominal discomfort. - Objective Vital Signs & Weight: Vital Signs (12 hours) Temp Pulse Resp BP BP Pulse Ox 08/28/20 04:45 98.1 F 105 H 18 78/44 L 95 08/28/20 00:55 101 H 20 96 08/27/20 23:30 97.7 F 106 H 20 88/49 L 90 L 08/27/20 20:10 98.1 F 111 H 20 92/55 L 91 L 08/27/20 19:08 20 Weight Admit Weight 58.2 kg Weight 67.767 kg Most Recent Monitor Data Heart Rate from ECG 99 NIBP 93/61 NIBP BP-Mean 71 Respiration from ECG 18 SpO2 99 I&O: 08/26/20 08/27/20 08/28/20 06:59 06:59 06:59 Intake Total 590 1276 1720 Output Total 740 200 Balance -150 1076 1720 Result Diagrams: 08/28/20 06:49 08/28/20 06:49 EKG Reviewed by me: Yes (tele: SR, sinus tach) Phys Exam - Physical Examination Constitutional: NAD HEENT: moist MMs sclera icteric Neck: no nodes Respiratory: wheezing present Cardiovascular: RRR, no significant murmur Gastrointestinal: soft, non-tender distended Musculoskeletal: no edema, pulses present Neurological: moves all 4 limbs Psychiatric: A&O x 3 Deviation from normal: flat affect Dx/Plan (1) Hemorrhagic shock Code(s): R57.8 - OTHER SHOCK Status: Acute (2) Acute renal failure Status: Acute (3) Alcoholic cirrhosis Code(s): K70.30 - ALCOHOLIC CIRRHOSIS OF LIVER WITHOUT ASCITES Status: Acute (4) COPD (chronic obstructive pulmonary disease) Status: Acute (5) GI bleed Code(s): K92.2 - GASTROINTESTINAL HEMORRHAGE, UNSPECIFIED Status: Acute (6) Hyperkalemia Code(s): E87.5 - HYPERKALEMIA Status: Acute (7) Hyponatremia Code(s): E87.1 - HYPO-OSMOLALITY AND HYPONATREMIA Status: Acute - Plan Plan: 60 yo M with pmh of cirrhosis 2/2 alcohol use, COPD, and tobacco abuse who presented for hemorrhagic shock 2/2 GI bleed. Flat Affect, Decreased mood -Patient continues to desire resuscitation efforts and to remain full code. -Palliative has been seeing patient and has had conversations with him regarding his prognosis and GOC. Sister is accepting of prognosis and desires home health. -Aware, will continue to monitor closely and try to engage patient in a respectful manner Hemorrhagic Shock 2/2 GI bleed -In ED: Protonix gtt, Octreotide gtt, 2L of Fluid, and Right femoral central line -s/p 3 U packed RBCs, ffpx1, Vit K -Octreotide stopped, titrated off levophed -Portal gastropathy and ulcers, which was cauterized -Continue to monitor Hgb daily - transfuse if below 7/[address] Patel -Consulted GI (08/18), Dr. Patel: protonix BID, consider therapeutic paracentesis Cirrhosis secondary to Alcoholism and Hep C -Home Meds: Spironolactone, Furosemide. Last hospitalized in April for Ascites. AST: 30, ALT: 19 on admission. He has not seen a GI doctor in past -MELD: 40, Morality 70% in 3 months. Jacinto-Javed: 13, Class C, life expectancy 1-3 years - s/p paracentesis 08/21, 3.8 L removed -trend LFTS and INR daily -Hep C quant: 9060 Hospital Acquire Pneumonia -CXR revealed R lower lobe consolidation -Afebrile, WBC 5.6>5.5>8.8 -started levaquin (08/24) -procal 0.96 -incentive spirometry order q2h SBP -Rocephin (08/20-/08/25) -Received one dose of albumin. Hospital shortage kept him from getting a second dose. Ileus -Bisacodyl [place] -08/24 KUB reveals increase in gaseous distention of colon, 08/26 KUB stable -Patient had bowel movement on 08/25. Will discontinue daily KUBs Thrombocytopenia -s/p FFP x1 on admission - plt 16 -Nursing reported increasing bleeding of femoral cath on 08/25 that did not res pond to applied pressure. Transfused 1uFFP. Plt 31 this AM. -Bleeding event from femoral cath on 08/26. Nursing applied pressure with sand bag and platelets were rechecked and found to be 25. -AM platelet pending COPD -Has inhaler at home, but does not use them -continue duonebs ARF on CKD -Cr: 7.7 --> 7.07 --> 6.3-->5.57-->4.9 -->4.7 -monitor I&Os -bicarb drip discontinued -NS 50mL/hr -Steve placed temporary dialysis cather --Consulted Nephrology: hold on dialysis. Continue to monitor kidney function daily. Tobacco Abuse -Nicoderm patch given Code Status: Full PCP: None Lines: R Femoral Fluids: NS 50mL/hr Diet: HH DVT PPx: SCDs, avoid anticoagulation Dispo: Continue GOC discussions daily. Palliative following closely. Kidney function continues to improve without dialysis. Appreciate GI and Nephro recs. Patient may be ready for discharge. CM consult to assess placement.
[2020-08-28 07:04] LABS: #Eosinphils 0.1 thou/uL (0.0-0.7); #Lymphocytes 0.8 thou/uL (1.20-3.40); #Monocytes 0.5 thou/uL (0.11-0.59); #Neutrophils 7.3 thou/uL (1.40-6.50); %Eosinophils 1.3 % (0.0-10.0); %Lymphocytes 9.6 % (21.0-51.0); %Monocytes 5.2 % (0.0-10.0); %Neutrophils 83.8 % (42.0-75.0); Hemoglobin 8.7 g/dL (14.0-18.0); Mean Corpuscular Hemoglobin 34.2 pg (27.0-31.0); Mean Platelet Volume 9.6 fL (7.4-10.4); Platelet Count 31 thou/uL (130-400); RBC Distribution Width 16.7 % (11.5-14.5); Red Blood Cell (RBC) Count 2.53 mill/uL (4.70-6.10); White Blood Cell (WBC) Count 8.8 thou/uL (4.8-10.8)
[2020-08-28 07:16] LABS: INR-International Normal Ratio 2.9; PTT 54.6 sec (22.9-36.1); Prothrombin Time 30.5 sec (12.0-14.7)
[2020-08-28 07:19] LABS: ALT (SGPT) 27 U/L (8-55); AST (SGOT) 43 U/L (5-34); Albumin 2.5 g/dL (3.5-5.0); Alkaline Phosphatase 58 U/L (40-110); Anion Gap 17 mmol/L (10-20); Bilirubin, Total 18.5 mg/dL (0.2-1.2); Calc. Creatinine Clearance 16 mL/min (70-130); Calcium 8.3 mg/dL (7.8-10.44); Carbon Dioxide 28 mmol/L (22-29); Chloride 98 mmol/L (98-107); Estimated GFR-MDRD 13; Globulin 1.7 g/dL (2.4-3.5); Glucose 112 mg/dL (70-105); Potassium 3.7 mmol/L (3.5-5.1); Protein, Total 4.2 g/dL (6.0-8.3); Sodium 139 mmol/L (136-145)
[2020-08-28 08:06] LABS: BUN (Urea Nitrogen) 132 mg/dL (8.4-25.7)
[2020-08-28] MEDS ORDERED: Heparin 10,000 UNITS/ 10 ML VIAL ONE (09:27)
--- NOTE | 2020-08-28 11:48 | PRG ---
DATE OF SERVICE: stating that no dialysis was indicated. The patient did go to dialysis today. We will continue to follow with Renal and GI. Job ID: [id number]
[2020-08-28 13:03] VITALS: BMI 24.8
[2020-08-28] MEDS: Folic Acid 1 MG TAB PO SCH (14:16)
[2020-08-28] MEDS: Pantoprazole 40 MG VIAL IVP SCH ×2 (14:17→20:05)
[2020-08-28] MEDS: Bisacodyl 10 MG SUPP PR SCH (14:17)
--- NOTE | 2020-08-28 15:55 | PRG ---
DATE OF SERVICE: 08/28/2020 SUBJECTIVE: Patient was seen and examined at bedside and overnight events noted. Patient denies any shortness of breath or chest pain or palpitation. No history of nausea or vomiting or diarrhea or fever or chills or cramps. OBJECTIVE: General: This is a well-built male, in no apparent distress. Vital Signs: Temperature 97.3. Heart Rate 99. Respiratory rate 20. Blood pressure 102/55. HEENT: Atraumatic, normocephalic. Oral mucosa is moist. Icterus present. Neck: Supple. Cardiovascular: S1, S2 heard. Rate and rhythm regular. Respiratory: Clear to auscultation. Gastrointestinal: Abdomen is soft. Musculoskeletal: No tenderness. 1+ edema. Dermatologic: Icterus present. Neurologic: Alert and awake and oriented x3. No focal neurologic deficits. Moving all the extremities. Psychiatric: Mood and affect normal. LABORATORY DATA: Potassium 3.7, BUN is 132, creatinine is 4.7. ASSESSMENT AND PLAN: 1. Acute kidney injury on chronic kidney disease stage 4. Renal function was getting better, stable, but his BUN remains elevated, for which I will try dialysis today. 2. Hypokalemia. 3. Alkalosis. 4. Cirrhosis. 5. Hypertension. 6. Pancytopenia. the renal function is stable with elevated BUN, I am planning to do dialysis 1 or 2 sessions. We will follow. Job ID: [id number]
--- NOTE | 2020-08-28 16:33 | PDOC.BPN ---
- Brief Progress Note Transition of Care Note: 60 yo with a history of COPD and alcoholic cirrhosis who presented via EMS following a large rectal bleed of bright red blood. Patient reports seeing drops of bright red blood for the past 3-4 days and diarrhea of one month duration. He denies any fever, CP, nausea, vomiting, or coughing up blood. He was diagnosed with alcoholic cirrhosis approximately 1 year ago and was last hospitalized for ascites in April in [place]. He has never seen GI outpatient. In the ED patient was hypotensive, hypothermic and tachycardic upon arrival. L humeral I/O was placed and patient received 2L NS. Right femoral central line was placed. Patient was started on octreotide and protonix drip and received 3upRBC and 1uplasma. Patient was admitted to ICU, intubated and placed on levophed gtt. Octreotide was discontinued. GI consulted and identified portal gastropathy and ulcers which were cauterized, instructions given to transfuse patients if H/H below 7/21. Patient was titrated off levophed and transferred to floor on 08/22. He was placed on protonix BID and daily KUBs and biscodyl to monitor an ileus. Regarding patients liver disease he had a MELD score of 40 and a Jacinto-Javed score of 13 on admission, which predicts a 70% mortality in 3 months. Patient is also Hep C positive with a quant of 9060. Patient received a paracentesis on 08/21 which removed 3.8 liters and was positive for SBP. Patient was treated with Rocephin which was later changed to Levaquin when a CXR suggested a R lower lobe consolidation. On admission patients Cr was >8 which continued to improve daily. Patient received dialysis on 08/28 because BUN had ceased improvement. During hospitalization patient became increasingly thrombocytopenic, with platelets as low as 15 at one point. He had several episodes of oozing blood from his right femoral cath and was transfused 2 additional units of platelets throughout his hospitalization. Patients prognosis is extremely poor. Palliative care has been consulted to consider hospice care. Patient is in denial regarding his prognosis and continues to remain full code. His sister is his MPOA. On 08/28 patient began refusing his medication and became increasingly confused. Sister plans to return on 08/29 and if patient continues to be altered will assume her position of MPOA and move forward with inpatient hospice placement and making patient DNR.
--- NOTE | 2020-08-28 17:21 | PRG ---
DATE OF SERVICE: 08/28/2020 SUBJECTIVE: Mr. Paredes has had no further bleeding. He is resting in bed. He is not eating much, does not want to talk. OBJECTIVE: VITAL SIGNS: Temperature is 97.3 pulse 88 to 99, blood pressure is 102/52. Intake 1720, output not recorded. ABDOMEN: Protuberant. SKIN: Jaundiced. He is icteric. EXTREMITIES: Trace edema in the legs. LABORATORY DATA: White count 8.8, hemoglobin 8.7, platelet count 31,000. INR is 2.9. Sodium 139, potassium 3.7, BUN and creatinine are 132 and 4.7, down from 8 on 08/21. Albumin is 2.5, protein 4.2. ASSESSMENT: 1. Gastrointestinal bleed secondary to bleeding vessel in stomach cauterized. 2. Ascites, SBP, on antibiotics. 3. Acute renal failure, stable. BUN has remained elevated. He is going to be started on dialysis per Nephrology. 4. Cirrhosis. 5. Pancytopenia. RECOMMENDATIONS: 1. Continue PPI therapy daily. 2. The patient may have a component of hepatorenal failure. We would support blood pressure and run him on the full side as far as preload goes. Hypotension will be detrimental to his chances of recovering kidney function. Job ID: [id number]
[2020-08-28] MEDS: Nicotine 14 MG PATCH TD SCH (20:05)
[2020-08-29] MEDS: Sodium Chloride 0.9% 1,000 ML IV SCH ×3 (02:40→21:50)
--- NOTE | 2020-08-29 06:08 | PDOC.FM ---
- Subjective Subjective: Pt resting comfortably this morning. No complaints. He is alert and oriented. We discussed his goals of care and he states he is on board with hospice and placement in custodial. - Objective Vital Signs & Weight: Vital Signs (12 hours) Temp Pulse Resp BP Pulse Ox 08/29/20 04:00 98.2 F 125 H 16 107/60 98 08/29/20 00:38 106 H 24 H 89 L 08/29/20 00:15 97.4 F L 104 H 18 95/50 L 92 L 08/28/20 20:00 98.2 F 104 H 18 89/54 L 98 08/28/20 19:30 87 18 98 Weight Admit Weight 58.2 kg Weight 66 kg Most Recent Monitor Data Heart Rate from ECG 99 NIBP 93/61 NIBP BP-Mean 71 Respiration from ECG 18 SpO2 99 I&O: 08/27/20 08/28/20 08/29/20 06:59 06:59 06:59 Intake Total 1276 1720 1010 Output Total 200 Balance 1076 1720 1010 Result Diagrams: 08/29/20 08:20 08/29/20 08:20 Phys Exam - Physical Examination Constitutional: NAD appears cachetic dry MM, icteric sclera Neck: supple, full ROM diffuse wheezing heard throughout all lung avilez Cardiovascular: RRR, no significant murmur distended, tympanitic abodmen Musculoskeletal: no edema Neurological: non-focal, moves all 4 limbs Psychiatric: A&O x 3 Deviation from normal: jaundice, large purpura upper torso and upper extremities Dx/Plan - Plan Plan: 60 yo M with pmh of cirrhosis 2/2 alcohol use, COPD, and tobacco abuse who pr esented for hemorrhagic shock 2/2 GI bleed. Hemorrhagic Shock 2/2 GI bleed -In ED: Protonix gtt, Octreotide gtt, 2L of Fluid, and Right femoral central line -s/p 3 U packed RBCs, ffpx1, Vit K -Octreotide stopped, titrated off levophed -Portal gastropathy and ulcers, which was cauterized -Continue to monitor Hgb daily - transfuse if below 7/[address] Patel -Consulted GI (08/18), Dr. Patel: protonix BID, consider therapeutic paracentesis Cirrhosis secondary to Alcoholism and Hep C -Last hospitalized in April for Ascites. AST: 30, ALT: 19 on admission. He has not seen a GI doctor in past -GI said to hold all diuretics due to hypotension, SBP, and poor renal function -MELD: 40, Morality 70% in 3 months. Jacinto-Javed: 13, Class C, life expectancy 1-3 years - s/p paracentesis 08/21, 3.8 L removed -trend LFTS and INR daily -Hep C quant: 9060 Hospital Acquire Pneumonia -CXR revealed R lower lobe consolidation -Afebrile, WBC 5.6>5.5>8.8 -started levaquin (08/24) -diffuse wheezing heard today despite being on scheduled duo nebs, pending repeat CXR -procal 0.96 -incentive spirometry order q2h SBP -Rocephin (08/20-/08/25) -Received one dose of albumin. Hospital shortage kept him from getting a second dose. Ileus -Bisacodyl [place] -08/24 KUB reveals increase in gaseous distention of colon, 08/26 KUB stable -Patient had bowel movement on 08/25. Will discontinue daily KUBs Thrombocytopenia -s/p FFP x1 on admission -Nursing reported increasing bleeding of femoral cath on 08/25 that did not respond to applied pressure. Transfused 1uFFP. -Bleeding event from femoral cath on 08/26. Nursing applied pressure with sand bag and platelets were rechecked and found to be 25. -Plt 24 this AM. COPD -Has inhaler at home, but does not use them -continue duonebs scheduled, added prn ARF on CKD -Cr: 7.7 --> 7.07 --> 6.3-->5.57-->4.9 -->4.7 -monitor I&Os -bicarb drip discontinued -Steve placed temporary dialysis cather --Consulted Nephrology: dialysis completed yesterday -Continue to monitor kidney function daily. Tobacco Abuse -Nicoderm patch given Flat Affect, Decreased mood -today patient stated that he is wanting to go on hospice and would like to be placed in a custodial upon discharge, unable to care for himself at home -Palliative has been seeing patient and has had conversations with him regarding his prognosis and GOC. Sister is accepting of prognosis and desires home health. Code Status: Full PCP: None Lines: R Femoral Fluids: NS 50mL/hr Diet: HH DVT PPx: SCDs, avoid anticoagulation Dispo: Continue GOC discussions. Palliative following closely. Dialysis yesterday. Appreciate GI and Nephro recs. CM consult to assess placement. Addendum - Attending - Attending Attestation Date/Time: 08/29/20 6916 I personally evaluated the patient and discussed the management with Dr. Mascorro I agree with the History, Examination, Assessment and Plan documented above with any addition or exceptions noted below. Patient with audible wheezing NAD exhibits mental capacity to request hospice care consultation. Ascites not currently affecting respiration . Continue SBP coverage. CXR and increased breathing treatments.
[2020-08-29] MEDS: Folic Acid 1 MG TAB PO SCH (08:32)
[2020-08-29] MEDS: Pantoprazole 40 MG VIAL IVP SCH ×2 (08:33→21:15)
[2020-08-29] MEDS: Bisacodyl 10 MG SUPP PR SCH (08:33)
[2020-08-29 09:37] LABS: #Eosinphils 0.1 thou/uL (0.0-0.7); #Lymphocytes 0.6 thou/uL (1.20-3.40); #Monocytes 0.4 thou/uL (0.11-0.59); #Neutrophils 9.3 thou/uL (1.40-6.50); %Basophils 0.1 % (0.0-1.0); %Eosinophils 0.7 % (0.0-10.0); %Monocytes 4.2 % (0.0-10.0); Hemoglobin 8.4 g/dL (14.0-18.0); Mean Corpuscular HGB CONC 32.1 g/dL (32.0-36.0); Mean Corpuscular Hemoglobin 35.3 pg (27.0-31.0); Mean Platelet Volume 9.9 fL (7.4-10.4); Platelet Count 24 thou/uL (130-400); RBC Distribution Width 16.7 % (11.5-14.5); Red Blood Cell (RBC) Count 2.37 mill/uL (4.70-6.10); White Blood Cell (WBC) Count 10.4 thou/uL (4.8-10.8)
[2020-08-29 09:46] LABS: ALT (SGPT) 28 U/L (8-55); AST (SGOT) 47 U/L (5-34); Albumin 2.5 g/dL (3.5-5.0); Alkaline Phosphatase 60 U/L (40-110); Anion Gap 12 mmol/L (10-20); BUN (Urea Nitrogen) 76 mg/dL (8.4-25.7); Bilirubin, Total 21.9 mg/dL (0.2-1.2); Calc. Creatinine Clearance 25 mL/min (70-130); Carbon Dioxide 26 mmol/L (22-29); Chloride 103 mmol/L (98-107); Estimated GFR-MDRD 22; Globulin 1.6 g/dL (2.4-3.5); Glucose 133 mg/dL (70-105); Potassium 3.3 mmol/L (3.5-5.1); Protein, Total 4.1 g/dL (6.0-8.3); Sodium 138 mmol/L (136-145)
--- NOTE | 2020-08-29 10:50 | PRG ---
DATE OF SERVICE: 08/29/2020 SUBJECTIVE: The patient was seen and examined at bedside. No complaints. No chest pain or palpitation. OBJECTIVE: GENERAL: This is a well-built male, in no apparent distress. VITAL SIGNS: pulse 90, respiratory rate blood pressure 114/63. HEENT: Atraumatic, normocephalic. Icterus present. NECK: Supple. CV: S1, S2 heard. GI: Distended MUSCULOSKELETAL: 1+ edema. DERMATOLOGIC: Icterus present. NEUROLOGICAL: Awake. LABORATORY DATA: Potassium 3.3, BUN is 76, creatinine is 3.0. ASSESSMENT AND PLAN: 1. Acute kidney injury, on chronic kidney stage 4 with improvement in BUN. Plan is to have another dialysis today for BUN clearance. Do not think the patient needs long-term dialysis at this point. We will give another dialysis today, then monitor renal function including urine output. 2. Hypokalemia. 3. Anemia. 4. History of cirrhosis. 5. Hepatorenal syndrome. PLAN: Plan to have another dialysis today. Job ID: [id number]
--- NOTE | 2020-08-29 11:23 | EKG ---
Test Reason : Blood Pressure : / mmHG Vent. Rate : 100 BPM Atrial Rate : 100 BPM P-R Int : 000 ms QRS Dur : 092 ms QT Int : 390 ms P-R-T Axes : 000 069 200 degrees QTc Int : 503 ms Atrial fibrillation Low voltage QRS Nonspecific T wave abnormality , probably digitalis effect Prolonged QT Abnormal ECG Confirmed by TYRONE WHEELER, CHRISTIAN Santos ([id number]), editor & co founder DEMETRI WOODS ([id number]) on 08/29/2020 11:22:59 AM Referred By: Confirmed By:CHRISTIAN HANSNE MD
--- NOTE | 2020-08-29 14:30 | RAD ---
PORTABLE CHEST: 08/29/20 INDICATION: Wheezing. COMPARISON: 08/23/20. Dextrocardia again noted. Effusion with right basilar atelectasis and/or infiltrate are again seen. S mall left effusion. The left lung otherwise appears clear. Old left rib fracture again noted. IMPRESSION: Increasing right basilar infiltrate and atelectasis with right effusion. Dextrocardia again noted. POS: AGW
--- NOTE | 2020-08-29 16:29 | PRG ---
DATE OF SERVICE: 08/29/2020 This is a cross coverage for Dr. Dilshad Paz. SUBJECTIVE: This is a 60-year-old male, with liver cirrhosis, ascites, SBP, on antibiotics. He also has had kidney disease and underwent dialysis. The patient has no abdominal pain. No rectal bleeding. No nausea, vomiting. Blood count is actually stable around 8.4, 8.7, 9 over the last 48 hours. He has no rectal bleeding or any melena. He offers no complaints. OBJECTIVE: VITAL SIGNS: Afebrile. Pulse is 90, blood pressure 114/60. CARDIOVASCULAR SYSTEM: Normal heart sounds. LUNGS: Clear to auscultation. ABDOMEN: Distended, but soft. Abdomen is nontender. LAB DATA: Potassium is slightly low at 3.3, BUN is 76, creatinine 3. CBC: WBC 10,400, hemoglobin is 8.4, hematocrit 26.2, platelet count is very low at 24,000. RECOMMENDATIONS: Continue IV antibiotics, continue supportive care. Job ID: [id number]
[2020-08-29] MEDS: Nicotine 14 MG PATCH TD SCH (21:15)
[2020-08-29 22:21] VITALS: BP 88/51; TEMP 93.9
[2020-08-29] MEDS ORDERED: Scopolamine 1.5 mg/72 hour Patch TD SCH (23:59)
[2020-08-30] MEDS: Morphine 4 MG/ML VIAL SLOW IVP PRN ×8 (00:15→17:54)
[2020-08-30] MEDS: Lorazepam 2 MG/ML VIAL SLOW IVP PRN ×2 (00:50→01:35)
--- NOTE | 2020-08-30 01:08 | PRG ---
DATE OF SERVICE: 08/30/2020 The residents were called to bedside at approximately 23:30 on 08/29/2018 for low blood pressure. At the time that I arrived, the nurses were discussing with the medical power of banking attorney, the sister, Petr, his code status. She was aware of his current condition and his poor survival rate. At that time, she decided to make him DNR and asked for no heroic measures. She also wanted to make him as comfortable as possible and did not pursue anymore aggressive treatment. This conversation was also observed by the nurse described by the nurse. Two nurses at bedside to make the patient DNR. Scopolamine, morphine, and Ativan added to the list for treatment of symptoms. Plan to consult Palliative Care in the morning. Job ID: [id number]
[2020-08-30 04:49] LABS: Hemoglobin 8.1 g/dL (14.0-18.0); Mean Corpuscular HGB CONC 31.4 g/dL (32.0-36.0); Mean Corpuscular Hemoglobin 35.2 pg (27.0-31.0); Mean Platelet Volume 10.2 fL (7.4-10.4); Platelet Count 24 thou/uL (130-400); RBC Distribution Width 17.2 % (11.5-14.5); Red Blood Cell (RBC) Count 2.31 mill/uL (4.70-6.10); White Blood Cell (WBC) Count 20.3 thou/uL (4.8-10.8)
[2020-08-30 05:06] LABS: ALT (SGPT) 31 U/L (8-55); AST (SGOT) 55 U/L (5-34); Albumin 2.3 g/dL (3.5-5.0); Alkaline Phosphatase 61 U/L (40-110); Anion Gap 17 mmol/L (10-20); BUN (Urea Nitrogen) 56 mg/dL (8.4-25.7); Calc. Creatinine Clearance 27 mL/min (70-130); Calcium 8.2 mg/dL (7.8-10.44); Carbon Dioxide 22 mmol/L (22-29); Chloride 103 mmol/L (98-107); Estimated GFR-MDRD 23; Globulin 1.7 g/dL (2.4-3.5); Glucose 101 mg/dL (70-105); Potassium 4.4 mmol/L (3.5-5.1); Sodium 138 mmol/L (136-145)
[2020-08-30 05:49] LABS: Band 1 % (5-11); Crenated RBC MODERATE= 6-15 cells (100X) (None Seen); Hypochromia MODERATE=16-30 cells (100X) (0-5/hpf); Lymphocytes 4 % (21-51); MDiff Complete? YES; Monocytes 2 % (0-10); Neutrophil 93 % (42-75); Platelet Morphology Comment Appears Decreased; Target Cells SLIGHT = 2-5 cells (100X) (0-1/hpf)
--- NOTE | 2020-08-30 06:06 | PDOC.FM ---
- Subjective Subjective: Pt sleeping on exam, did not awaken. Had just gotten a dose of morphine. Overnight had episode of hypotension and worsening resp status. Sister (ISA) called and requested his code status be changed to DNR. - Objective Vital Signs & Weight: Vital Signs (12 hours) Temp Pulse Resp BP Pulse Ox 08/30/20 02:00 106 H 24 H 93 L 08/29/20 22:36 100 22 H 95 08/29/20 20:50 93.9 F L 101 H 28 H 88/51 L 93 L 08/29/20 18:36 101 H 22 H 93 L Weight Admit Weight 58.2 kg Weight 66 kg Most Recent Monitor Data Heart Rate from ECG 99 NIBP 93/61 NIBP BP-Mean 71 Respiration from ECG 18 SpO2 99 I&O: 08/28/20 08/29/20 08/30/20 06:59 06:59 06:59 Intake Total 1720 1010 600 Balance 1720 1010 600 Result Diagrams: 08/30/20 04:00 08/30/20 04:00 Phys Exam - Physical Examination sleeping, on 5L NC dry mm, icteric sclera Neck: supple, full ROM Respiratory: wheezing present Cardiovascular: RRR, no significant murmur distended, soft Musculoskeletal: pulses present, edema present Neurological: non-focal, moves all 4 limbs Deviation from normal: jaundice, large purpuric lesions on torso Dx/Plan - Plan Plan: Hemorrhagic Shock 2/2 GI bleed -In ED: Protonix gtt, Octreotide gtt, 2L of Fluid, and Right femoral central line -s/p 3 U packed RBCs, ffpx1, Vit K -Octreotide stopped, titrated off levophed -GI: EGD, Portal gastropathy and ulcers- cauterized,monitor Hgb daily - transfuse if below 7/[address] Patel, protonix BID -last night had episode of hypotension, ISA (sister) was called and she stated pt would want DNR, comfort measures, code status changed, added scopolamine, ativan and morphine prn -yesterday patient was alert and oriented and stated that he is wanting to go on hospice and would like to be placed in a correction upon discharge, unable to care for himself at home Cirrhosis secondary to Alcoholism and Hep C -AST: 55, uptrending, T bili 24 uptrending -GI said to hold all diuretics due to hypotension, and poor renal function -MELD: 40, Morality 70% in 3 months. Jacinto-Javed: 13, Class C, life expectancy 1 -3 years - s/p paracentesis 08/21, 3.8 L removed -trend LFTS and INR daily -Hep C quant: [id number] Hospital Acquire Pneumonia -CXR revealed R lower lobe consolidation -Afebrile, WBC 5.6>5.5>8.8 -started levaquin (08/24) -repeat CXR on 08/29 shows increasing right basilar infiltrate, effusion; dextrocardia -increased duoneb frequency and add prn -incentive spirometry order q2h SBP -Rocephin (08/20-/08/25) -Received one dose of albumin. Hospital shortage kept him from getting a second dose. -currently on levaquin, adequate coverage per GI Ileus -resolved, daily bm's recorded -08/24 KUB reveals increase in gaseous distention of colon, 08/26 KUB stable Thrombocytopenia -s/p FFP x1 on admission -Nursing reported increasing bleeding of femoral cath on 08/25 that did not respond to applied pressure. Transfused 1uFFP. -Bleeding event from femoral cath on 08/26. Nursing applied pressure with sand bag and platelets were rechecked and found to be 25. -Plt 24 this AM. COPD -Has inhaler at home, but does not use them -increasing oxygen requirement 93% on 5L -continue duonebs scheduled, added prn ANTHONY on CKD -Cr: 7.7 --> 7.07 --> 6.3-->5.57-->4.9 -->4.7 -monitor I&Os -[place] placed temporary dialysis cather -Consulted Nephrology: dialysis completed yesterday -Continue to monitor kidney function daily. Tobacco Abuse -Nicoderm patch given Code Status: DNR PCP: None Lines: R Femoral Fluids: NS 50mL/hr Diet: HH DVT PPx: SCDs, avoid anticoagulation Dispo: Now DNR and comfort care, Palliative following closely. Dialysis yesterday. Appreciate GI and Nephro recs. CM consult to assess placement. Addendum - Attending - Attending Attestation Date/Time: 08/30/20 [id number] I personally evaluated the patient and discussed the management with Dr. Mascorro I agree with the History, Examination, Assessment and Plan documented above with any addition or exceptions noted below. Patient transitioning to actively dying will notify family and continue comfort care per patient wishes expressed yesterday.
[2020-08-30] MEDS: Pantoprazole 40 MG VIAL IVP SCH ×2 (10:44→20:57)
[2020-08-30] MEDS: Folic Acid 1 MG TAB PO SCH (10:44)
[2020-08-30] MEDS: Bisacodyl 10 MG SUPP PR SCH (10:44)
[2020-08-30] MEDS: Sodium Chloride 0.9% 1,000 ML IV SCH ×2 (10:45→20:57)
--- NOTE | 2020-08-30 12:58 | PRG ---
DATE OF SERVICE: 08/30/2020 SUBJECTIVE: This is a 60-year-old male with liver cirrhosis, GI bleeding, ascites, spontaneous bacterial peritonitis. He also has had dialysis yesterday for severe kidney failure. The patient is sleepy at the present time. He apparently has had some morphine for some pain. I reviewed the progress sheet from [facility]. Apparently, the patient's family called and made him a DNR. OBJECTIVE: GENERAL: He is sleepy. VITAL SIGNS: Afebrile, his pulse is 93, blood pressure is 88/51. HEENT: He is icteric. CARDIOVASCULAR SYSTEM: Normal heart sounds. LUNGS: Clear to auscultation. ABDOMEN: Distended. Abdomen is nontender. RECOMMENDATIONS: 1. Follow up labs. 2. Transfuse p.r.n. 3. We will sign off from today, and if any changes, please call GI Service back. The CBC today remains the same as yesterday. WBC is 120,000, hemoglobin 8.1, hematocrit 25.9, platelet count remains low 24,000. Job ID: [id number]
--- NOTE | 2020-08-30 14:02 | PRG ---
DATE OF SERVICE: 08/30/2020 SUBJECTIVE: The patient was seen and examined at bedside. He is nonverbal. OBJECTIVE: GENERAL: This is a well-built male, agonal breaths. VITAL SIGNS: Temperature 93.9, pulse 106, respiratory rate 24, blood pressure 98/52. HEENT: Atraumatic, normocephalic. NECK: Supple. CVS: S1 and S2 heard. RESPIRATORY: Clear. GI: Abdomen is distended. MUSCULOSKELETAL: 1+ edema. NEUROLOGIC: Not responding. LABORATORY DATA: Potassium 4.4, BUN is 56, and creatinine is 2.8. ASSESSMENT AND PLAN: 1. Acute kidney injury on chronic kidney disease stage 3 with worsening labs. Could not tolerate dialysis yesterday and apparently family made him comfort measures only. 2. . 3. Hepatorenal syndrome. 4. Anemia. Prognosis is poor. Family made him comfort measures. The patient could not tolerate dialysis. I will sign off. Please call back with any questions. Remove dialysis catheter. Job ID: [id number]
[2020-08-30] MEDS: Nicotine 14 MG PATCH TD SCH (20:57)
--- NOTE | 2020-08-31 14:42 | DIS ---
DATE OF ADMISSION: 08/20/2020 DATE OF DISCHARGE: 08/30/2020 ATTENDING PHYSICIAN: Dr. Head. RESIDENT: Yadira Mascorro MD DATE OF : 08/30/2020. TIME OF : 2147 hours. CAUSE OF : Hepatorenal syndrome due to cirrhosis, due to alcohol and hepatitis C, SBP as contributing, GI bleed as contributing. SECONDARY DIAGNOSES: Hemorrhagic shock secondary to gastrointestinal bleed, hospital-acquired pneumonia, thrombocytopenia, chronic obstructive pulmonary disease, acute kidney injury on chronic kidney disease, tobacco abuse. HOSPITAL COURSE: This is a 60-year-old male with history of COPD and alcoholic cirrhosis, who presented to ED with large amount of rectal bleeding. He had been diagnosed with alcoholic cirrhosis about 1 year ago, had not seen GI outpatient. In ED, found to be hypotensive, hypothermic, and tachycardiac. Femoral line placed. Admitted to ICU, intubated and placed on Levophed drip. GI performed EGD and found portal gastropathy of ulcers, which were cauterized. The patient titrated off Levophed and transferred to the floor. The patient's prognosis was poor and reported to both the patient and sister, who was his medical power of sports attorney. The patient received paracentesis and removed 3.8 L positive for SBP. Later in hospital course, he was diagnosed with right lower lobe pneumonia and then treated with antibiotics. Throughout the hospitalization, clinical picture continued to decline, thrombocytopenia with platelets as low as 15 and continued bleeding. Palliative Care was consulted. The patient and sister agreed. Was placed DNR. The patient became minimally unresponsive one day prior to passing. Family was able to visit and last rites were performed. Job ID: [id number] [facility]
--- NOTE | 2020-09-02 23:05 | PQF ---
CLINICAL DOCUMENTATION CLARIFICATION FORM: Dear : Carson Head Date / Time: 09/02 23:03 Please exercise your independent, professional judgment in responding to the clarification form. Clinical indicators are provided on the bottom of this form for your review Based on your clinical judgment, can you please specify etiology of patients GI bleed? Please check appropriate box(es): [ ] AVM [ x ] Portal hypertensive gastropathy [ ] Gastric Ulcer [ ] Duodenal Ulcer [ ] Other diagnosis,please specify [ ] Unable to determine Physician Signature: Carson Head Date/Time:09/03/20 For continuity of documentation, please document condition throughout progress notes and discharge summary. Thank You. To be completed by CDI/Coding staff for physician review: Present Clinical Indicators - Signs / Symptoms / Labs Results and Location in Medical Record [x] GI bleed from a vascular lesion of unclear etiology. Apparently, this was not a varix. It is a small AVM PN 08/27 [x] GI bleed secondary to bleeding vessels in the stomach PN 08/28 [x] CC: rectal bleed HP 08/20 [x] Hemorrhagic shock ff rectal bleed HP 08/20 [x] portal HTN gastropathy with increased friability and oozing of blood, but no evidence of active bleeding OP Note 08/20 [x] Gastric ulcer seen along the greater curvature with adherent clot concerning for recent GI bleeding OP Note 08/20 Present Risk Factors Results and Location in Medical Record [x] Smoker HP 08/20 [x] Portal HTN gastropathy OP Note 08/20 [x] Gastric ulcer OP Note 08/20 [x] Duodenal ulcer OP Note 08/20 Present Treatments Results and Location in Medical Record [x] Blood tranfusion HP 08/20 [x] EGD with control of bleeding OP Note 08/20 [x] Pantoprazole 40mg IV JAN 20 [x] IVF JAN 20 CDS/[employer] Drawer Signature: Anne Steward Phone #: ext [phone] Date/Time: 09/02/2020 23:03 This is a permanent part of the Medical Record [facility]
== END 2020-08-30 21:47 | disposition expired | DRG 441 ==
LOC: ERS 10:41 → EDBD 10:41 → CCU 15:49 → 2NO 08-22 20:02
PROVIDERS: ADMIT Student in an Organized Health Care Education/Training Program; ATTEND Student in an Organized Health Care Education/Training Program
PROC: 0W3P8ZZ Control Bleeding in Gastrointestinal Tract, Via Natural or Artificial Opening Endoscopic (ICD-10-PCS; principal; 2020-08-20)
PROC: 30233L1 Transfusion of Nonautologous Fresh Plasma into Peripheral Vein, Percutaneous Approach (ICD-10-PCS; 2020-08-20)
PROC: 30233N1 Transfusion of Nonautologous Red Blood Cells into Peripheral Vein, Percutaneous Approach (ICD-10-PCS; 2020-08-20)
PROC: 30233K1 Transfusion of Nonautologous Frozen Plasma into Peripheral Vein, Percutaneous Approach (ICD-10-PCS; 2020-08-20)
PROC: 3E033XZ Introduction of Vasopressor into Peripheral Vein, Percutaneous Approach (ICD-10-PCS; 2020-08-20)
PROC: 06HY33Z Insertion of Infusion Device into Lower Vein, Percutaneous Approach (ICD-10-PCS; 2020-08-20)
PROC: 0W9G3ZZ Drainage of Peritoneal Cavity, Percutaneous Approach (ICD-10-PCS; 2020-08-21)
PROC: 06HN33Z Insertion of Infusion Device into Left Femoral Vein, Percutaneous Approach (ICD-10-PCS; 2020-08-21)
PROC: 30233R1 Transfusion of Nonautologous Platelets into Peripheral Vein, Percutaneous Approach (ICD-10-PCS; 2020-08-25)
PROC: 5A1D70Z Performance of Urinary Filtration, Intermittent, Less than 6 Hours Per Day (ICD-10-PCS; 2020-08-28)
DX: K76.6 Portal hypertension (principal); K76.7 Hepatorenal syndrome; J96.01 Acute respiratory failure with hypoxia; K65.2 Spontaneous bacterial peritonitis; J18.9 Pneumonia, unspecified organism; R64 Cachexia; N17.9 Acute kidney failure, unspecified; E87.1 Hypo-osmolality and hyponatremia; E87.2 Acidosis; D68.9 Coagulation defect, unspecified; N18.5 Chronic kidney disease, stage 5; Q24.0 Dextrocardia; K56.7 Ileus, unspecified; I13.2 Hypertensive heart and chronic kidney disease with heart failure and with stage 5 chronic kidney disease, or end stage renal disease; J44.0 Chronic obstructive pulmonary disease with (acute) lower respiratory infection; D61.818 Other pancytopenia; E87.3 Alkalosis; T82.838A Hemorrhage due to vascular prosthetic devices, implants and grafts, initial encounter; Z66 Do not resuscitate; Z51.5 Encounter for palliative care; Z68.24 Body mass index [BMI] 24.0-24.9, adult; I44.1 Atrioventricular block, second degree; R57.8 Other shock; E87.5 Hyperkalemia; K70.31 Alcoholic cirrhosis of liver with ascites; F17.200 Nicotine dependence, unspecified, uncomplicated; I50.9 Heart failure, unspecified; K31.89 Other diseases of stomach and duodenum; K25.9 Gastric ulcer, unspecified as acute or chronic, without hemorrhage or perforation; K26.9 Duodenal ulcer, unspecified as acute or chronic, without hemorrhage or perforation; Z20.828 Contact with and (suspected) exposure to other viral communicable diseases; B18.2 Chronic viral hepatitis C; E75.249 Niemann-Pick disease, unspecified; K72.90 Hepatic failure, unspecified without coma; Y95 Nosocomial condition; F10.20 Alcohol dependence, uncomplicated; E88.09 Other disorders of plasma-protein metabolism, not elsewhere classified; E87.6 Hypokalemia; Y84.8 Other medical procedures as the cause of abnormal reaction of the patient, or of later complication, without mention of misadventure at the time of the procedure; K55.20 Angiodysplasia of colon without hemorrhage
CPT/HCPCS: 36415; 36416; 36430; 36556; 36680; 49083; 51702; 71045; 74018; 80053; 82042; 82105; 82607; 82728; 82746; 82805; 83540; 84145; 84157; 85025; 85060; 85610; 85730; 86705; 86709; 86803; 86850; 86900; 86901; 87070; 87205; 87340; 87522; 87635; 89051; 90471; 90935; 93005; 93970; 94002; 94003; 94640; 94760; 96365; 96366; 96368; 96374; 96375; 96376; 99292; C9113; G0257; J0171; J0696; J1642; J1644; J1956; J2060; J2250; J2270; J2354; J3430; J3480; J3490; J7050; J7070; J7620; P9016; P9035; P9047; P9059; U0003